=== PATIENT | male | born 1960 | race African-American/Black ===

== ENCOUNTER 2016-06-15 00:59 | Emergency (ER) | payer OTHER ==
[2015-12-12 20:30] VITALS: BP 166/84
[~2016-06-15 00:59] MED LIST: ASPI-482 PO; LOSA50TA6 PO; ONDA4TAB10 PO; PRED20TA PO
== END 2016-06-15 01:40 | disposition left against medical advice (07) ==
LOC: ER 00:59
DX: R10.9 Unspecified abdominal pain (principal); R11.2 Nausea with vomiting, unspecified; Z53.21 Procedure and treatment not carried out due to patient leaving prior to being seen by health care provider; Z88.8 Allergy status to other drugs, medicaments and biological substances; Z88.1 Allergy status to other antibiotic agents

== ENCOUNTER 2016-09-17 16:37 | Emergency (ER) | payer OTHER ==
[~2016-09-17] VITALS: Ht 175.3 cm; Wt 122.5 kg
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
[2016-09-17] MEDS ORDERED: IBUPROFEN 600 MG TABLET. PO ONE (17:15)
[2016-09-17 17:47] LABS: BASO # 0.1 x10^3/uL (0.0-0.2); BASO % 2 % (0-3); EOS % 1 % (0-3); HEMATOCRIT 37.1 % (39.0-53.0); HEMOGLOBIN 12.7 g/dL (13.0-17.5); LYMPH # 2.5 x10^3/uL (1.0-4.8); LYMPH % 26 % (24-48); MEAN CORPUSCULAR HEMOGLOBIN 30 pg (25-35); MEAN CORPUSCULAR HGB CONC 34 g/dL (31-37); MEAN CORPUSCULAR VOLUME 87 fL (79-100); MONO % 6 % (0-9); NEUT % 65 % (31-73); PLATELET COUNT 323 x10^3/uL (140-400); RED BLOOD COUNT 4.25 x10^6/uL (4.30-5.70); RED CELL DISTRIBUTION WIDTH 15.6 % (11.5-14.5); WHITE BLOOD COUNT 9.4 x10^3/uL (4.0-11.0)
[2016-09-17 17:57] LABS: CALCIUM 8.9 mg/dL (8.5-10.1); CREATININE 0.8 mg/dL (0.7-1.3); GFR 121.4; POTASSIUM 4.5 mmol/L (3.5-5.1)
[2016-09-17 18:03] LABS: ALBUMIN 3.4 g/dL (3.4-5.0); ALBUMIN/GLOBULIN RATIO 1.1 (1.0-1.7); TOTAL BILIRUBIN 0.4 mg/dL (0.2-1.0); TOTAL PROTEIN 6.5 g/dL (6.4-8.2)
[2016-09-17 18:24] VITALS: BP 155/87
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
[2016-09-17] MEDS ORDERED: OXYC-323 PO (18:55)
--- NOTE | 2016-09-18 06:40 | EKG ---
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
== END 2016-09-17 19:25 | disposition home or self-care (01) ==
LOC: ER 16:37
DX: G89.29 Other chronic pain (principal); M54.2 Cervicalgia; M54.16 Radiculopathy, lumbar region; E11.9 Type 2 diabetes mellitus without complications; E78.00 Pure hypercholesterolemia, unspecified; I10 Essential (primary) hypertension; Z90.81 Acquired absence of spleen; Z88.1 Allergy status to other antibiotic agents; Z88.8 Allergy status to other drugs, medicaments and biological substances; Z86.73 Personal history of transient ischemic attack (TIA), and cerebral infarction without residual deficits
CPT/HCPCS: 36415; 70450; 72125; 72131; 80053; 85027; 93005; 99285-25

== ENCOUNTER 2016-10-08 20:05 | Inpatient (IN) | payer OTHER ==
[~2016-10-08] VITALS: Ht 175.3 cm; Wt 122.7 kg
[~2016-10-08 20:05] MED LIST changes: +BUSP15TA PO; +OXYC-323 PO
[2016-10-08 20:47] LABS: BASO # 0.1 x10^3/uL (0.0-0.2); BASO % 1 % (0-3); EOS % 1 % (0-3); HEMATOCRIT 40.9 % (39.0-53.0); HEMOGLOBIN 13.4 g/dL (13.0-17.5); LYMPH # 2.4 x10^3/uL (1.0-4.8); LYMPH % 25 % (24-48); MEAN CORPUSCULAR HEMOGLOBIN 29 pg (25-35); MEAN CORPUSCULAR HGB CONC 33 g/dL (31-37); MEAN CORPUSCULAR VOLUME 90 fL (79-100); MONO % 6 % (0-9); NEUT % 66 % (31-73); PLATELET COUNT 379 x10^3/uL (140-400); RED BLOOD COUNT 4.56 x10^6/uL (4.30-5.70); RED CELL DISTRIBUTION WIDTH 15.4 % (11.5-14.5); WHITE BLOOD COUNT 9.5 x10^3/uL (4.0-11.0)
[2016-10-08 20:57] LABS: INR 1.1 (0.8-1.1); PROTHROMBIN TIME PATIENT 13.2 SEC (11.7-14.0)
[2016-10-08 21:00] LABS: CALCIUM 8.5 mg/dL (8.5-10.1); CREATININE 1.1 mg/dL (0.7-1.3); GFR 84.1; POTASSIUM 3.9 mmol/L (3.5-5.1)
[2016-10-08] MEDS ORDERED: MORPHINE SULFATE 10 MG/ML VIAL. IV ONE (21:00)
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
[2016-10-08 21:07] LABS: ALBUMIN 3.8 g/dL (3.4-5.0); MAGNESIUM 2.3 mg/dL (1.8-2.4); TOTAL BILIRUBIN 0.6 mg/dL (0.2-1.0); TOTAL PROTEIN 7.6 g/dL (6.4-8.2)
--- NOTE | 2016-10-08 21:13 | RAD ---
CT HEAD WO CONTRAST History: Altered gait, right leg pain for one week Comparison: September 17, 2016 Technique: Noncontrast [address] images were acquired from the skull base to the vertex. Exposure: One or more of the following individualized dose reduction techniques were utilized for this examination: 1. Automated exposure control 2. Adjustment of the mA and/or kV according to patient size 3. Use of iterative reconstruction technique. Findings: No acute extra-axial or parenchymal hemorrhage is identified. There is no significant intra-axial mass effect, midline shift, or extra-axial fluid collection. The patterson-white differentiation of the major vascular territories is preserved. The ventricles, sulci, and cisterns are within normal limits in size and configuration. Mastoid air cells are aerated. There is again 1.7 mm complex cyst or polyp of the left sphenoid sinus. No acute calvarial abnormality is identified. Impression: 1. No acute intracranial abnormality is identified. 2. There is again complex cyst or polyp of the left sphenoid sinus. Electronically signed by: Marvel Luque MD (10/08/2016 9:10 PM) [facility]
[2016-10-08 21:26] LABS: BILIRUBIN,URINE NEGATIVE (NEG); GLUCOSE,URINE NEGATIVE (NEG); NITRITE,URINE NEGATIVE (NEG); PH,URINE 5.5; PROTEIN,URINE NEGATIVE (NEG-TRACE)
[2016-10-08 21:33] LABS: BARBITURATES NEG (NEG); BENZODIAZEPINES NEG (NEG); CANNABINOIDS NEG (NEG); COCAINE NEG (NEG); METHADONE NEG (NEG); OPIATES NEG (NEG); PHENCYCLIDINE NEG (NEG)
[2016-10-08 21:36] LABS: BACTERIA,URINE MODERATE /HPF (0-FEW); SQUAMOUS EPITHELIAL CELL,UR FEW /LPF
[2016-10-08] MEDS ORDERED: ONDANSETRON PF 4 MG/2 ML VIAL. IV PRN (21:45)
[2016-10-08] MEDS ORDERED: fentaNYL PF VIAL 100 MCG/2 ML VIAL IV PRN (21:45)
[2016-10-08] MEDS ORDERED: ASPIRIN ENTERIC COATED 325 MG TABLET.DR. PO ONE (21:45)
[2016-10-08 22:55] VITALS: BP 119/78
[2016-10-09] MEDS ORDERED: TRIA1TAB3 PO (00:05)
[2016-10-09] MEDS ORDERED: LORA10TA3 PO (00:05)
[2016-10-09] MEDS ORDERED: AZEL137S3 NS (00:05)
[2016-10-09 03:15] VITALS: BP 152/84
[2016-10-09 05:06] LABS: BASO % 1 % (0-3); EOS % 2 % (0-3); HEMATOCRIT 37.2 % (39.0-53.0); HEMOGLOBIN 12.5 g/dL (13.0-17.5); LYMPH # 2.3 x10^3/uL (1.0-4.8); LYMPH % 28 % (24-48); MEAN CORPUSCULAR HEMOGLOBIN 30 pg (25-35); MEAN CORPUSCULAR HGB CONC 34 g/dL (31-37); MEAN CORPUSCULAR VOLUME 88 fL (79-100); MONO % 10 % (0-9); NEUT % 60 % (31-73); PLATELET COUNT 351 x10^3/uL (140-400); RED BLOOD COUNT 4.21 x10^6/uL (4.30-5.70); RED CELL DISTRIBUTION WIDTH 15.7 % (11.5-14.5); WHITE BLOOD COUNT 8.3 x10^3/uL (4.0-11.0)
--- NOTE | 2016-10-09 05:29 | ACF ---
Admission Forms Criteria NEUROLOGY GRG Clinical Indications for Admission to Inpatient Care (Place ' X' for any and all applicable criteria): Hospital admission is needed for appropriate care of the patient because of 1 or more of the following: [ ]I. Encephalitis [ ]II. Severe [employer] infections indicated by 1 or more of the following(1)(2)(3) : [ ]a) Intracranial abscess [ ]b) Spinal abscess or myelitis [ ]c) Tuberculous or other nonbacterial, nonviral STE[employer]ENDANT infection(8) [ ]III. Vasculitis and 1 or more of the following(14)(15): []a) Altered mental status that is severe or persistent or other acute neurologic change []b) Psychosis []c) Seizure [ ]IV. Status epilepticus or repetitive seizures not controlled with emergent treatment [A] (7)(8) [ ]V. Altered mental status that is severe or persistent [ ]. Transient alteration in consciousness with high-risk etiology; examples include (12)(13): [ ]a) Cardiovascular source [ ]b) Cataplexy [ ]VII. Cerebral aneurysm requiring ANY ONE of the following(14): [ ]a) IV antihypertensives or vasoactive agents [ ]b) Sedation and analgesia for suspected leak [ ]c) Need for external ventricular drainage and cerebral perfusion pressure monitoring [ ]d) Emergent evaluation to determine need for surgical clipping or endovascular coiling by interventional radiology. If surgery is required ( Also use Craniotomy, Supratentorial, for Surgery of Bleeding Intracranial Aneurysm (for bleeding aneurysm) or Craniotomy, Supratentorial (for nonbleeding aneurysm) as appropriate. [X]VIII. New-onset severe neurologic symptom requiring inpatient care indicated by ANY ONE of the following: [ ]a) Aphasia(15) [ ]b) Weakness (grade 3 or less) [ ]c) Paralysis (eg, hemiplegia) [ ]d) Spasticity(16) [ ]e) Dystonia [ ]e) Ataxia(17) [ ]f) Amnesia(18) [ ]g) Involuntary movements(19) [ ]h) Vertigo [ ] Visual loss [X]i) Other severe neurologic finding (eg, papilledema, mass effect on imaging, myoclonus not treatable at alternative level of care (eg, observation care) [ ]IX. Guillain-[place] syndrome(20) [ ]X. Myasthenia gravis crisis or inpatient monitoring need as indicated by 1 or more of the following(21): [ ]a) Intensive treatment (eg, course of plasmapheresis) with inadequate outpatient situation to monitor patients status [ ]b) Inadequate airway protection [ ]c) Respiratory insufficiency requiring intubation or inpatient. monitoring [ ]d) Progressive dysphagia with failure to thrive [ ]XI. Multiple sclerosis or other acute demyelinating disease requiring inpatient care as indicated by 1 or more of the following (22)(23): [ ]a) Acute severe deterioration requiring inpatient treatment (eg, IV steroids, plasmapheresis, close observation) [ ]b) Acute complication requiring inpatient care (eg, sepsis, severe decubitus, aspiration) [ ]XII.Parkinson disease requiring inpatient care (Also use Optimal Recovery Care Criteria or General Recovery Criteria as appropriate) indicated by 1 or more of the following(25): [ ]a) Infection (eg, aspiration pneumonia) not treatable at alternative level of care [ ]b Dehydration that is severe or persistent [ ]c) Life-threatening agitation or psychotic behavior not treatable on emergency, observation care, or alternative level (eg, residential) basis [ ]d) Severe medication withdrawal effects (eg, freezing, neuroleptic malignant syndrome) not responsive to emergency and observation care treatment ( as appropriate) [ ]e) Other severe manifestation not treatable at alternative level of care [ ]XII. Amyotrophic lateral sclerosis with inpatient care needs as indicated by ANY ONE of the following(26): [ ]a) Acute complications (eg, aspiration pneumonia, sepsis ) requiring inpatient care ( see other optimal Recovery Guideline as appropriate) [ ]b) Dehydration that is severe persistent AND artificial support desired [ ]c) Inadequate airway protection AND artificial support desired [ ]d) Severe ventilatory insufficiency AND artificial support desired [ ]XIII. Myasthenia gravis crisis or inpatient monitoring need as indicated by 1 or more of the following(21): [] a) Inadequate airway protection []b) Respiratory insufficiency requiring intubation or inpatient monitoring []c) Progressive dysphagia with failure to thrive []d) Intensive treatment (e.g., course of plasmapheresis) with inadequate outpatient situation to monitor patients status [ ]XIV. Multiple sclerosis or other acute demyelinating disease requiring inpatient care indicated by 1 or more of the following[C](36)(43)(44)(45)(46): []a) Acute severe deterioration requiring inpatient treatment (eg, IV steroids, plasmapheresis, close observation) []b) Acute complication requiring inpatient care (eg, sepsis, severe decubitus, aspiration) [ ]XV. Intracranial hypertension (e.g., pseudotumor cerebri) requiring inpatient care (e.g., acute visual loss, inadequate oral intake) (47)(48)(49) [ ]XVI. Parkinson disease requiring inpatient care (Also use Optimal Recovery Care Criteria or General Recovery Criteria as appropriate) indicated by 1 or more of the following(25): [] a) Infection (e.g., aspiration pneumonia) not treatable at alternative level of care []b) Volume depletion not responsive to emergency and observation care treatment (as appropriate) []c) Life-threatening agitation or psychotic behavior not treatable on emergency, observation care, or alternative level (e.g., residential) basis []d) Severe medication withdrawal effects (e.g., freezing, neuroleptic malignant syndrome) not responsive to emergency and observation care treatment (as appropriate) []e) Other severe manifestation not treatable at alternative level of care [ ]XVII. Amyotrophic lateral sclerosis with inpatient care needs as indicated by1 or more of the following(42): []a) Acute complications (eg, aspiration pneumonia, sepsis) requiring inpatient care (see other Optimal Recovery Guideline or General Recovery Guideline as appropriate) []b) Dehydration that is severe or persistent AND artificial support desired []c) Inadequate airway protection AND artificial support desired []d) Severe ventilatory insufficiency AND artificial support desired [ ]XVIII. Severe myopathy, neuropathy, or other neuromuscular disease indicated by 1 or more of the following(42)(52)(53)(54): []a ) New-onset severe diffuse weakness (eg, strength 3/5 or less) []b) Severe dysphagia []c) Dyspnea at rest or with minimal exertion (new) []d) Inadequate airway protection []e) Inadequate ventilation indicated by 1 or more of the following : i) Partial pressure of carbon dioxide greater than 44 mm Hg ( 5.9 kPa) (new) ii) Reduced peak expiratory flow rate (new) iii) Vital capacity less than 50% of predicted (less than 15 mL/kg) iv) Peak inspiratory force less negative than -30 cm H2O (- 2942 Pa) [ ]XVII.Complications of congenital or degenerative disease (eg, infection, seizures, dehydration, injury) not responsive to emergency and observation care treatment (as appropriate ) [C](16)(29)(30) [ ]XVIII.Suspected or confirmed nerve or muscle toxic injury, including ANY ONE of the following: [ ]a) Rhabdomyolysis(31) i) Acute renal failure ii) Dehydration that is severe or persistent iii) Altered mental status that is severe or persistent iv) Electrolyte abnormality that remains after emergency or observation level care ( as appropriate) [ ]b) Botulism(32) [ ]c) Other severe toxin-induced sign or symptom [ ]XIX. Neurologic trauma requiring inpatient treatment (medical) indicated by ANY ONE of the following(33)(34): [ ]a) Vital signs or neurologic signs more frequently than every 4 hours [ ]b) Hyperosmolar therapy [ ]c) Respiratory monitoring [ ]d) Intracranial pressure monitoring and treatment [ ]e) Stabilization and immobilization device placement (eg, braces, body jacket) [ ]f) Intubation & mechanical ventilation for airway protection or therapeutic hyperventilation [ ]g) Other treatment or monitoring needed that requires inpatient level of care [ ]XX.Complications of neurologic devices (eg, ventricular shunt, neurostimulator) requiring 1 or more of the following(35)(36): [ ]a) IV antibiotics with monitoring while awaiting culture results [ ]b) Monitoring for hydrocephalus [ ]XXI. Neurology condition symptom, or finding for which emergency and observation care have failed or are not considered appropriate. See General Criteria: Observation Care ISC, General Admission Criteria GRG, or Pediatric General Admission Criteria GRG guideline as appropriate. The original [facility] [employer] content created by [facility] has been revised. The portions of the content which have been revised are identified through the use of italic text or in bold, and [facility] has neither reviewed nor approved the modified material. All other unmodified content is copyright [facility] Please see references footnoted in the original [facility] Admission Criteria Met?: Yes DEONDRE ALVES Oct 09, 2016 05:29
[2016-10-09 05:33] LABS: CALCIUM 8.2 mg/dL (8.5-10.1); CREATININE 0.8 mg/dL (0.7-1.3); GFR 121.4; POTASSIUM 3.6 mmol/L (3.5-5.1)
[2016-10-09 07:00] VITALS: BP 123/66
[2016-10-09 11:00] VITALS: BP 154/80
[2016-10-09] MEDS ORDERED: traMADol 50 MG TABLET PO PRN (11:15)
[2016-10-09] MEDS ORDERED: hydrALAZINE 20 MG/ML VIAL. IVP PRN (11:15)
[2016-10-09] MEDS ORDERED: ONDANSETRON PF 4 MG/2 ML VIAL. IV PRN (11:15)
[2016-10-09] MEDS ORDERED: MORPHINE SULFATE 2 MG/ML DISP.SYRIN. IV PRN (11:15)
[2016-10-09] MEDS ORDERED: DOCUSATE SODIUM 100 MG CAPSULE. PO PRN (11:15)
[2016-10-09] MEDS ORDERED: oxyCODONE/APAP 5/325 1 TAB TABLET PO PRN (11:15)
[2016-10-09] MEDS ORDERED: ACETAMINOPHEN 325 MG TABLET. PO PRN (11:15)
[2016-10-09 11:44] LABS: FOLATE 18.81 ng/ml (3.2-20.0)
[2016-10-09] MEDS: ENOXAPARIN 40 MG/0.4 ML SYRINGE. SQ SCH (12:00)
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
--- NOTE | 2016-10-09 13:26 | RAD ---
Indication: Right arm and leg pain and weakness. Technique: Study is dated October 09, 2016. MRI evaluation of the brain was performed using sagittal T1, axial FLAIR, axial T2, axial T1, axial gradient echo, coronal T2, and axial diffusion with ADC mapping sequences. Comparison is a CT from one day earlier. Findings: The ventricles and sulci are within normal limits for age. FLAIR hyperintensities in the supratentorial white matter are not specific but most suggestive of mild small vessel ischemic disease. There is no acute intracranial hemorrhage or extra-axial fluid collection. There is no mass effect or midline shift. There is no restricted diffusion to suggest an acute infarct. Sagittal midline structures are unremarkable. Pituitary and suprasellar region are unremarkable. Intracranial flow voids are preserved. There is a left sphenoid retention cyst. IMPRESSION: 1. Brain parenchymal volume loss and mild probable small vessel ischemic disease. No acute intracranial findings. Electronically signed by: Nader Locke MD (10/09/2016 1:23 PM) [id number]
[2016-10-09] MEDS: CETIRIZINE HCL 10 MG TABLET. PO SCH (13:45)
[2016-10-09] MEDS: ASPIRIN ENTERIC COATED 81 MG TABLET.DR. PO SCH (13:46)
[2016-10-09] MEDS: GABAPENTIN 300 MG CAPSULE. PO SCH ×2 (13:46→20:30)
[2016-10-09] MEDS: amLODIPine BESYLATE 5 MG TABLET PO SCH (13:46)
[2016-10-09] MEDS: TRIAMTERENE/HCTZ 37.5/25MG TABLET. PO SCH (13:46)
[2016-10-09] MEDS: AZELASTINE NASAL SPRAY 30ML BOTTLE. NS SCH (13:46)
[2016-10-09 15:00] VITALS: BP 148/80
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
[2016-10-09 19:45] VITALS: BP 158/93
[2016-10-09 23:00] VITALS: BP 133/69
[2016-10-09] MEDS: busPIRone 5 MG TABLET. PO PRN (23:40)
[2016-10-10 03:03] VITALS: BP 136/68
[2016-10-10 04:35] LABS: BASO # 0.1 x10^3/uL (0.0-0.2); BASO % 1 % (0-3); EOS % 2 % (0-3); HEMATOCRIT 39.8 % (39.0-53.0); HEMOGLOBIN 13.2 g/dL (13.0-17.5); LYMPH # 2.4 x10^3/uL (1.0-4.8); LYMPH % 31 % (24-48); MEAN CORPUSCULAR HEMOGLOBIN 30 pg (25-35); MEAN CORPUSCULAR HGB CONC 33 g/dL (31-37); MEAN CORPUSCULAR VOLUME 90 fL (79-100); MONO % 8 % (0-9); NEUT % 58 % (31-73); PLATELET COUNT 326 x10^3/uL (140-400); RED CELL DISTRIBUTION WIDTH 15.6 % (11.5-14.5); WHITE BLOOD COUNT 7.9 x10^3/uL (4.0-11.0)
[2016-10-10 04:58] LABS: CALCIUM 8.6 mg/dL (8.5-10.1); CREATININE 0.9 mg/dL (0.7-1.3); POTASSIUM 3.9 mmol/L (3.5-5.1)
[2016-10-10 07:50] VITALS: BP 114/69
[2016-10-10] MEDS: TRIAMTERENE/HCTZ 37.5/25MG TABLET. PO SCH (07:52)
[2016-10-10] MEDS: CETIRIZINE HCL 10 MG TABLET. PO SCH (07:53)
[2016-10-10] MEDS: GABAPENTIN 300 MG CAPSULE. PO SCH ×2 (07:54→13:57)
[2016-10-10] MEDS: ASPIRIN ENTERIC COATED 81 MG TABLET.DR. PO SCH (07:54)
[2016-10-10] MEDS: amLODIPine BESYLATE 5 MG TABLET PO SCH (07:55)
[2016-10-10] MEDS: AZELASTINE NASAL SPRAY 30ML BOTTLE. NS SCH (09:37)
[2016-10-10] MEDS ORDERED: BUSP15TA PO (10:58)
[2016-10-10] MEDS ORDERED: TRAM50TA PO (10:58)
[2016-10-10] MEDS ORDERED: GABA300C8 PO (10:58)
[2016-10-10] MEDS ORDERED: ASPI-482 PO (10:58)
[2016-10-10] MEDS ORDERED: TRIA1TAB3 PO (10:58)
[2016-10-10 11:15] VITALS: BP 149/84
[2016-10-10] MEDS: busPIRone 5 MG TABLET. PO PRN (12:34)
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
[2016-10-10] MEDS ORDERED: GADOBUTROL 7.5 MMOL/7.5 ML VIAL IV ONE (13:15)
[2016-10-10] MEDS: ENOXAPARIN 40 MG/0.4 ML SYRINGE. SQ SCH (13:58)
--- NOTE | 2016-10-10 14:02 | RAD ---
INDICATION: Left leg pain and numbness. Weakness. TECHNIQUE: Sagittal T1, sagittal T2, sagittal STIR, sagittal postcontrast, axial T1, axial T2, and axial postcontrast sequences are provided. 12 mL of intravenous Gadavist was administered without complication. Comparison is a CT from September 17, 2016. FINDINGS: There is no malalignment. There is fatty replacement of the corners of several vertebral bodies which is probably degenerative. There is no marrow edema. There is no worrisome marrow lesion. There is diffuse disc desiccation. There is no pathologic enhancement. The conus medullaris is normal in signal intensity and in position. It terminates at L1-L2. Subcutaneous edema is noted. The numbering system assumes 5 lumbar type vertebral bodies. Findings by individual level are as follows: L1-L2: There is no canal or foraminal compromise. L2-L3: Minimal disc bulge and mild facet hypertrophy are noted without canal or foraminal compromise. L3-L4: Mild disc bulge and facet hypertrophy are noted with mild foraminal narrowing. L4-L5: Diffuse disc bulge and moderate facet and ligamentum flavum hypertrophy are noted. There is mild to moderate canal stenosis. There is lateral recess narrowing bilaterally, could explain an L5 radiculopathy, especially on the right. There is mild foraminal narrowing. L5-S1: Disc bulge and facet hypertrophy are noted. There is edema about the facets which is probably reactive. There is minimal canal stenosis. There is mild lateral recess narrowing bilaterally. There is minimal left and [id number] right foraminal narrowing. IMPRESSION: Degenerative disc disease and facet hypertrophy in the lumbar spine, findings most notable at L4-L5 and L5-S1. Electronically signed by: Nader Locke MD (10/10/2016 1:59 PM) [id number]
[2016-10-10 15:20] VITALS: BP 142/83
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
[2016-10-10] MEDS ORDERED: SIMVASTATIN 20 MG TABLET PO SCH (21:00)
== END 2016-10-10 10:53 | disposition home or self-care (01) | DRG 74 ==
LOC: ER 20:05 → 6 SOUTH 21:35
PROVIDERS: ADMIT Internal Medicine; ATTEND Internal Medicine
DX: E11.42 Type 2 diabetes mellitus with diabetic polyneuropathy (principal); Z68.41 Body mass index [BMI] 40.0-44.9, adult; N39.0 Urinary tract infection, site not specified; E66.01 Morbid (severe) obesity due to excess calories; I10 Essential (primary) hypertension; G89.29 Other chronic pain; F41.9 Anxiety disorder, unspecified; E78.5 Hyperlipidemia, unspecified; R27.0 Ataxia, unspecified; F17.210 Nicotine dependence, cigarettes, uncomplicated; M54.2 Cervicalgia; M54.9 Dorsalgia, unspecified; Z88.1 Allergy status to other antibiotic agents; Z79.899 Other long term (current) drug therapy; Z82.49 Family history of ischemic heart disease and other diseases of the circulatory system; Z86.73 Personal history of transient ischemic attack (TIA), and cerebral infarction without residual deficits; Z90.81 Acquired absence of spleen; Z88.8 Allergy status to other drugs, medicaments and biological substances
CPT/HCPCS: 36415; 70450; 70551; 72158; 80048; 80053; 80061; 80307; 81001; 82607; 82746; 82962; 83036; 83735; 83880; 84443; 84484; 85027; 85610; 85730; 87086; 96374; A9585; G0480; J1650; J2270; 97535; 99285-25; G0479

== ENCOUNTER 2016-10-10 23:29 | Emergency (ER) | payer OTHER ==
[~2016-10-10] VITALS: Ht 175.3 cm; Wt 122.5 kg
[~2016-10-10 23:29] MED LIST changes: +AZEL137S3 NS; +GABA300C8 PO; +LORA10TA3 PO; +TRAM50TA PO; +TRIA1TAB3 PO
[2016-10-10 23:51] VITALS: BP 177/80
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
== END 2016-10-11 00:16 | disposition home or self-care (01) ==
LOC: ER 23:29
DX: M79.604 Pain in right leg (principal); F41.9 Anxiety disorder, unspecified; E11.9 Type 2 diabetes mellitus without complications; E78.00 Pure hypercholesterolemia, unspecified; I10 Essential (primary) hypertension; G89.29 Other chronic pain; Z86.73 Personal history of transient ischemic attack (TIA), and cerebral infarction without residual deficits; Z90.81 Acquired absence of spleen; Z88.1 Allergy status to other antibiotic agents; Z88.8 Allergy status to other drugs, medicaments and biological substances
CPT/HCPCS: 99281

== ENCOUNTER 2016-10-30 02:46 | Emergency (ER) | payer OTHER ==
[~2016-10-30] VITALS: Ht 175.3 cm; Wt 122.5 kg
[2016-10-30 03:57] LABS: BASO # 0.1 x10^3/uL (0.0-0.2); BASO % 1 % (0-3); EOS % 1 % (0-3); HEMATOCRIT 39.2 % (39.0-53.0); HEMOGLOBIN 12.9 g/dL (13.0-17.5); LYMPH # 2.8 x10^3/uL (1.0-4.8); LYMPH % 23 % (24-48); MEAN CORPUSCULAR HEMOGLOBIN 29 pg (25-35); MEAN CORPUSCULAR HGB CONC 33 g/dL (31-37); MEAN CORPUSCULAR VOLUME 90 fL (79-100); MONO % 6 % (0-9); NEUT % 69 % (31-73); PLATELET COUNT 415 x10^3/uL (140-400); RED BLOOD COUNT 4.39 x10^6/uL (4.30-5.70); RED CELL DISTRIBUTION WIDTH 15.4 % (11.5-14.5)
[2016-10-30 04:16] LABS: CALCIUM 9.1 mg/dL (8.5-10.1); CREATININE 0.9 mg/dL (0.7-1.3); GFR 105.6; POTASSIUM 3.7 mmol/L (3.5-5.1)
--- NOTE | 2016-10-30 04:20 | RAD ---
EXAM: CT head without contrast HISTORY: dizzy COMPARISON: October 08, 2016 TECHNIQUE: Computed tomographic images of the head were obtained without contrast. RS compliance statement: One or more of the following individualized dose reduction techniques were utilized for this examination: 1. Automated exposure control 2. Adjustment of the mA and/or kV according to patient size 3. Use of iterative reconstruction technique FINDINGS: There is no acute intracranial process identified. Specifically, there are no intracranial blood products, extra-axial fluid collections, mass effect or midline shift. Ventricles and sulci appear age-appropriate. A mucous retention cyst versus polyp is present in the left sphenoid sinus. Remaining visualized paranasal sinuses are clear. The visualized portions of the orbits and mastoid air cells are unremarkable. No suspicious calvarial lesion is seen. IMPRESSION: No acute intracranial findings. Electronically signed by: Donna Grayson MD (10/30/2016 4:17 AM) [facility]
[2016-10-30 04:23] LABS: ALBUMIN 3.5 g/dL (3.4-5.0); ALBUMIN/GLOBULIN RATIO 0.9 (1.0-1.7); TOTAL BILIRUBIN 0.6 mg/dL (0.2-1.0); TOTAL PROTEIN 7.3 g/dL (6.4-8.2)
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
[2016-10-30 05:41] LABS: BARBITURATES NEG (NEG); BENZODIAZEPINES NEG (NEG); CANNABINOIDS NEG (NEG); COCAINE NEG (NEG); METHADONE NEG (NEG); OPIATES NEG (NEG); PHENCYCLIDINE NEG (NEG)
[2016-10-30 06:20] VITALS: BP 148/72
--- NOTE | 2016-10-30 07:15 | RAD ---
Portable chest, 10/30/2016: History: Dizziness Comparison is made to a study from 09/27/2016. The heart is at the upper limits of normal in size. The pulmonary vascularity is normal. No pulmonary infiltrates are seen. There is no evidence of pleural fluid. IMPRESSION: No acute cardiopulmonary abnormality is detected.
--- NOTE | 2016-10-30 10:16 | EKG ---
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
== END 2016-10-30 06:20 | disposition home or self-care (01) ==
LOC: ER 02:46
DX: G47.10 Hypersomnia, unspecified (principal); R42 Dizziness and giddiness; I10 Essential (primary) hypertension; E11.9 Type 2 diabetes mellitus without complications; F41.9 Anxiety disorder, unspecified; E78.00 Pure hypercholesterolemia, unspecified; Z86.73 Personal history of transient ischemic attack (TIA), and cerebral infarction without residual deficits; Z88.1 Allergy status to other antibiotic agents; Z88.8 Allergy status to other drugs, medicaments and biological substances
CPT/HCPCS: 36415; 70450; 71010; 80053; 80307; 82962; 84443; 84484; 85025; 93005; 99285; G0480; G0479

== ENCOUNTER 2016-11-16 18:59 | Emergency (ER) | payer OTHER ==
[~2016-11-16] VITALS: Ht 175.3 cm; Wt 122.5 kg
[2016-11-16 19:20] VITALS: BP 151/76
[2016-11-16] MEDS ORDERED: CEPH-264 PO (19:36)
[2016-11-16] MEDS ORDERED: DIPH25CA58 PO (19:36)
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
== END 2016-11-16 19:45 | disposition home or self-care (01) ==
LOC: ER 18:59
DX: S80.862A Insect bite (nonvenomous), left lower leg, initial encounter (principal); S80.861A Insect bite (nonvenomous), right lower leg, initial encounter; J02.9 Acute pharyngitis, unspecified; F41.9 Anxiety disorder, unspecified; E11.9 Type 2 diabetes mellitus without complications; I10 Essential (primary) hypertension; E78.00 Pure hypercholesterolemia, unspecified; G89.29 Other chronic pain; Z86.73 Personal history of transient ischemic attack (TIA), and cerebral infarction without residual deficits; Z90.81 Acquired absence of spleen; Z88.1 Allergy status to other antibiotic agents; Z88.8 Allergy status to other drugs, medicaments and biological substances; W57.XXXA Bitten or stung by nonvenomous insect and other nonvenomous arthropods, initial encounter; Y93.89 Activity, other specified; Y92.89 Other specified places as the place of occurrence of the external cause; Y99.8 Other external cause status
CPT/HCPCS: 99283

== ENCOUNTER 2016-11-25 11:50 | Emergency (ER) | payer OTHER ==
[~2016-11-25] VITALS: Ht 175.3 cm; Wt 124.7 kg
[~2016-11-25 11:50] MED LIST changes: +CEPH-264 PO; +DIPH25CA58 PO
--- NOTE | 2016-11-25 13:48 | RAD ---
Chest, 2 views, 11/25/2016: History: Cough, shortness of breath Comparison is made to a study from 10/30/2016. The heart size and pulmonary vascularity are normal. There is unchanged widening of the superior mediastinum. This has been present on multiple old exams. No pulmonary infiltrates are seen. There is no evidence of pleural fluid. Mild spurring is present in the spine. IMPRESSION: 1. Stable superior mediastinal widening. 2. No acute cardiopulmonary abnormality is detected.
--- NOTE | 2016-11-25 13:51 | EKG ---
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
[2016-11-25 14:10] LABS: BASO # 0.1 x10^3/uL (0.0-0.2); BASO % 1 % (0-3); EOS % 2 % (0-3); HEMATOCRIT 38.5 % (39.0-53.0); HEMOGLOBIN 12.7 g/dL (13.0-17.5); LYMPH # 2.5 x10^3/uL (1.0-4.8); LYMPH % 26 % (24-48); MEAN CORPUSCULAR HEMOGLOBIN 29 pg (25-35); MEAN CORPUSCULAR HGB CONC 33 g/dL (31-37); MEAN CORPUSCULAR VOLUME 89 fL (79-100); MONO % 7 % (0-9); NEUT % 64 % (31-73); PLATELET COUNT 337 x10^3/uL (140-400); RED BLOOD COUNT 4.32 x10^6/uL (4.30-5.70); WHITE BLOOD COUNT 9.6 x10^3/uL (4.0-11.0)
[2016-11-25 14:22] LABS: PROTHROMBIN TIME PATIENT 12.8 SEC (11.7-14.0)
--- NOTE | 2016-11-25 14:24 | RAD ---
Indication pain and swelling. Grayscale color Doppler and spectral imaging was performed. Examination was targeted to the veins of the right lower extremity. The common femoral, femoral and popliteal vessels demonstrate normal flow compressibility and augmentation. No thrombus is seen. The visualized calf veins appeared normal. An enlarged lymph node was noted in the right groin, during the exam, approaching 4 cm. IMPRESSION: Negative study for DVT in the right lower extremity. Enlarged lymph node right groin
[2016-11-25 14:34] LABS: CALCIUM 8.9 mg/dL (8.5-10.1); CREATININE 0.8 mg/dL (0.7-1.3); POTASSIUM 3.8 mmol/L (3.5-5.1)
[2016-11-25 14:40] LABS: ALBUMIN 3.2 g/dL (3.4-5.0); ALBUMIN/GLOBULIN RATIO 0.8 (1.0-1.7); TOTAL BILIRUBIN 0.5 mg/dL (0.2-1.0)
[2016-11-25] MEDS ORDERED: FUROSEMIDE 40 MG/4 ML VIAL. IVP ONE (15:00)
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
[2016-11-25 15:34] VITALS: BP 172/88
[2016-11-26 06:54] LABS: NEGATIVE OBC STREP NEG; POSITIVE OBC STREP POS
== END 2016-11-25 16:00 | disposition home or self-care (01) ==
LOC: ER 11:50
DX: R60.0 Localized edema (principal); J02.9 Acute pharyngitis, unspecified; E11.9 Type 2 diabetes mellitus without complications; E78.00 Pure hypercholesterolemia, unspecified; I10 Essential (primary) hypertension; F17.200 Nicotine dependence, unspecified, uncomplicated; Z86.73 Personal history of transient ischemic attack (TIA), and cerebral infarction without residual deficits; Z59.0 Homelessness; Z88.1 Allergy status to other antibiotic agents; Z88.8 Allergy status to other drugs, medicaments and biological substances
CPT/HCPCS: 36415; 71020; 80053; 83880; 84484; 85025; 85610; 85730; 87070; 87880; 93005; 93971; 96374; 99285; J1940

== ENCOUNTER 2016-12-01 06:33 | Emergency (ER) | payer OTHER ==
[~2016-12-01] VITALS: Ht 175.3 cm; Wt 113.4 kg
[2016-12-01 07:13] LABS: BASO # 0.1 x10^3/uL (0.0-0.2); BASO % 1 % (0-3); EOS % 2 % (0-3); HEMOGLOBIN 13.5 g/dL (13.0-17.5); LYMPH # 2.8 x10^3/uL (1.0-4.8); LYMPH % 29 % (24-48); MEAN CORPUSCULAR HEMOGLOBIN 30 pg (25-35); MEAN CORPUSCULAR HGB CONC 33 g/dL (31-37); MEAN CORPUSCULAR VOLUME 90 fL (79-100); MONO % 8 % (0-9); NEUT % 60 % (31-73); PLATELET COUNT 359 x10^3/uL (140-400); RED BLOOD COUNT 4.56 x10^6/uL (4.30-5.70); RED CELL DISTRIBUTION WIDTH 15.7 % (11.5-14.5); WHITE BLOOD COUNT 9.8 x10^3/uL (4.0-11.0)
[2016-12-01 07:15] VITALS: BP 160/93
[2016-12-01] MEDS ORDERED: FUROSEMIDE 40 MG TABLET. PO ONE (07:15)
[2016-12-01 07:24] LABS: CALCIUM 9.3 mg/dL (8.5-10.1); CREATININE 0.9 mg/dL (0.7-1.3); GFR 105.6; POTASSIUM 4.3 mmol/L (3.5-5.1)
[2016-12-01 07:30] LABS: ALBUMIN 3.6 g/dL (3.4-5.0); TOTAL BILIRUBIN 0.4 mg/dL (0.2-1.0); TOTAL PROTEIN 7.2 g/dL (6.4-8.2)
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
[2016-12-01 07:38] LABS: CKMB MASS 3.1 ng/mL (0.0-3.6)
[2016-12-01] MEDS ORDERED: FURO-68 PO (08:10)
--- NOTE | 2016-12-01 08:13 | RAD ---
AP portable chest radiograph 12/01/2016 Clinical History: Shortness of breath. An AP portable erect digital radiograph of the chest was obtained. Comparison study is dated 11/25/2016. The cardiac silhouette is borderline enlarged. The thoracic aorta is mildly tortuous. No acute pulmonary infiltrate is seen. No pleural effusion or pneumothorax is noted. The osseous structures are unchanged. Impression: No acute pulmonary infiltrate is seen.
--- NOTE | 2016-12-01 12:52 | EKG ---
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
== END 2016-12-01 08:53 | disposition home or self-care (01) ==
LOC: ER 06:33
DX: R60.0 Localized edema (principal); R06.02 Shortness of breath; F41.9 Anxiety disorder, unspecified; E11.9 Type 2 diabetes mellitus without complications; E78.00 Pure hypercholesterolemia, unspecified; I10 Essential (primary) hypertension; G89.29 Other chronic pain; E66.9 Obesity, unspecified; Z87.891 Personal history of nicotine dependence; Z90.81 Acquired absence of spleen; Z88.1 Allergy status to other antibiotic agents; Z86.73 Personal history of transient ischemic attack (TIA), and cerebral infarction without residual deficits; Z79.84 Long term (current) use of oral hypoglycemic drugs; Z88.8 Allergy status to other drugs, medicaments and biological substances; Z68.36 Body mass index [BMI] 36.0-36.9, adult
CPT/HCPCS: 36415; 71010; 80053; 82553; 83880; 84484; 85025; 93005; 99285-25

== ENCOUNTER 2016-12-03 01:29 | Emergency (ER) | payer OTHER ==
[~2016-12-03] VITALS: Ht 175.3 cm; Wt 113.4 kg
[~2016-12-03 01:29] MED LIST changes: +FURO-68 PO
[2016-12-03 02:58] VITALS: BP 141/84
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
[2016-12-03] MEDS ORDERED: FAMOTIDINE 20 MG TABLET. PO ONE (03:45)
[2016-12-03] MEDS ORDERED: predniSONE 20 MG TABLET PO ONE (03:45)
[2016-12-03] MEDS ORDERED: METH4TAB2 PO (04:15)
[2016-12-03] MEDS ORDERED: FAMO-63 PO (04:15)
== END 2016-12-03 04:33 | disposition home or self-care (01) ==
LOC: ER 01:29
DX: T78.3XXA Angioneurotic edema, initial encounter (principal); E11.9 Type 2 diabetes mellitus without complications; E78.00 Pure hypercholesterolemia, unspecified; I10 Essential (primary) hypertension; Z86.73 Personal history of transient ischemic attack (TIA), and cerebral infarction without residual deficits; G89.29 Other chronic pain; Z90.81 Acquired absence of spleen; Z88.1 Allergy status to other antibiotic agents; Z88.8 Allergy status to other drugs, medicaments and biological substances
CPT/HCPCS: 99283; J7512

== ENCOUNTER 2016-12-12 02:03 | Emergency (ER) | payer OTHER ==
[~2016-12-12] VITALS: Ht 175.3 cm; Wt 113.4 kg
[~2016-12-12 02:03] MED LIST changes: +FAMO-63 PO; +METH4TAB2 PO
[2016-12-12 02:12] VITALS: BP 171/81
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
[2016-12-12] MEDS ORDERED: BENZ100C PO (02:38)
[2016-12-12 02:39] LABS: POTASSIUM ISTAT 3.8 mmol/L (3.5-5.0)
== END 2016-12-12 02:45 | disposition home or self-care (01) ==
LOC: ER 02:03
DX: J02.9 Acute pharyngitis, unspecified (principal); F17.200 Nicotine dependence, unspecified, uncomplicated; E78.00 Pure hypercholesterolemia, unspecified; I10 Essential (primary) hypertension; E11.9 Type 2 diabetes mellitus without complications; G89.29 Other chronic pain; Z88.1 Allergy status to other antibiotic agents; Z86.73 Personal history of transient ischemic attack (TIA), and cerebral infarction without residual deficits; Z88.8 Allergy status to other drugs, medicaments and biological substances
CPT/HCPCS: 80047; 99283

== ENCOUNTER 2016-12-24 04:10 | Inpatient (IN) | payer OTHER ==
[~2016-12-24] VITALS: Ht 175.3 cm; Wt 113.4 kg
[~2016-12-24 04:10] MED LIST changes: +BENZ100C PO
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
[2016-12-24 04:46] LABS: BASO # 0.1 x10^3/uL (0.0-0.2); BASO % 1 % (0-3); EOS % 2 % (0-3); HEMATOCRIT 39.4 % (39.0-53.0); LYMPH # 2.5 x10^3/uL (1.0-4.8); LYMPH % 25 % (24-48); MEAN CORPUSCULAR HEMOGLOBIN 29 pg (25-35); MEAN CORPUSCULAR HGB CONC 33 g/dL (31-37); MEAN CORPUSCULAR VOLUME 89 fL (79-100); MONO % 7 % (0-9); NEUT % 66 % (31-73); PLATELET COUNT 304 x10^3/uL (140-400); RED BLOOD COUNT 4.45 x10^6/uL (4.30-5.70); RED CELL DISTRIBUTION WIDTH 15.4 % (11.5-14.5)
[2016-12-24 04:56] LABS: INR 1.1 (0.8-1.1); PROTHROMBIN TIME PATIENT 13.3 SEC (11.7-14.0)
[2016-12-24] MEDS ORDERED: IPRATRPIUM/ALBUTEROL 0.5/2.5MG 3 ML NEBU. NEB ONE (05:00)
[2016-12-24 05:07] LABS: ALBUMIN 3.1 g/dL (3.4-5.0); ALBUMIN/GLOBULIN RATIO 0.8 (1.0-1.7); CALCIUM 8.7 mg/dL (8.5-10.1); CREATININE 0.8 mg/dL (0.7-1.3); POTASSIUM 3.7 mmol/L (3.5-5.1); TOTAL BILIRUBIN 0.4 mg/dL (0.2-1.0); TOTAL PROTEIN 6.8 g/dL (6.4-8.2)
[2016-12-24 05:13] LABS: CKMB MASS 3.1 ng/mL (0.0-3.6)
[2016-12-24] MEDS ORDERED: ONDANSETRON PF 4 MG/2 ML VIAL. IV PRN (05:15)
[2016-12-24] MEDS ORDERED: methylPREDNISolone SOD SUCC PF 125 MG/2 ML VIAL. IV ONE (05:30)
[2016-12-24] MEDS ORDERED: IPRATRPIUM/ALBUTEROL 0.5/2.5MG 3 ML NEBU. NEB SCH ×2 (06:00→14:00)
[2016-12-24] MEDS ORDERED: NICOTINE 21MG PATCH. TD SCH (06:00)
[2016-12-24] MEDS ORDERED: ALBUTEROL SULFATE 2.5 MG/3 ML NEBU. NEB PRN ×3 (06:30→13:15)
--- NOTE | 2016-12-24 07:12 | RAD ---
Indication: Short of air Technique: Upright portable chest radiograph was obtained. Comparison is from December 01, 2016. Findings: The lungs are clear. The cardiopulmonary silhouette is within normal limits. The bony structures are intact. Leads overlie the patient. Impression: No active pulmonary disease.
[2016-12-24 07:15] VITALS: BP 148/80
--- NOTE | 2016-12-24 08:31 | EKG ---
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
[2016-12-24 09:11] LABS: BARBITURATES NEG (NEG); BENZODIAZEPINES NEG (NEG); CANNABINOIDS NEG (NEG); COCAINE NEG (NEG); METHADONE NEG (NEG); OPIATES NEG (NEG); PHENCYCLIDINE NEG (NEG)
[2016-12-24 11:00] VITALS: BP 149/80
[2016-12-24] MEDS ORDERED: PROAIR HFA8.5 GM INH (11:54)
[2016-12-24] MEDS ORDERED: IBUP-1007 PO (11:54)
[2016-12-24] MEDS ORDERED: ATOR10TA60 PO (11:54)
--- NOTE | 2016-12-24 12:08 | PDOC1 ---
History and Physical Date of Admission Date of Admission DATE: 12/24/16 TIME: 12:08 Source Source: Chart review, Patient History of Present Illness History of Present Illness Mr. Dorman is a 56 year old male admit overnight from ER with worsenign shortness of breath from home. he has not felt well for almost a week, chills and weakness and cough, +clear sputum. Almsot a week of increasing shortness of air. Has been compliant with his medications. He has new swelling in his legs, and is upset about his toenails, w/ fungus PCP Dr Tovar. ongoing use of tobacco. 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 Past Medical History Cardiovascular: HTN Pulmonary: No pertinent hx CENTRAL NERVOUS SYSTEM: Other GI: No pertinent hx Heme/Onc: No pertinent hx Hepatobiliary: No pertinent hx Psych: No pertinent hx Musculoskeletal: Osteoarthritis Rheumatologic: No pertinent hx Infectious disease: No pertinent hx Renal/: No pertinent hx Endocrine: Diabetes Past Surgical History Past Surgical History: Other Family History Family History: Hypertension Social History Smoke: <1 pack per day ALCOHOL: none Drugs: None Current Problem List Problem List Problems Medical Problems: (1) COPD with acute exacerbation Status: Acute (2) Dyspnea Status: Acute Problems: Current Medications Current Medications Current Medications Albuterol/ Ipratropium (Duoneb) 3 ml 1X ONCE NEB Last administered on 04:35; Start 12/24/16 at 05:00; Stop 12/24/16 at 05:01; Status DC Methylprednisolone Sodium Succinate (SOLU-Medrol 125MG VIAL) 125 mg 1X ONCE IV Last administered on 12/24/16 05:22; Start 12/24/16 at 05:30; Stop at 05:31; Status DC Ondansetron HCl (Zofran) 4 mg PRN Q8HRS PRN IV NAUSEA/VOMITING Last administered on 12/24/16 09:04; Start 12/24/16 at 05:15; Stop 12/25/16 at 05 :14 Albuterol/ Ipratropium (Duoneb) 3 ml Q3HRS NEB Last administered on 12/24/16 06:00; Start 12/24/16 at 06:00; Stop 12/24/16 at 06:17; Status DC Methylprednisolone Sodium Succinate (SOLU-Medrol 40MG VIAL) 40 mg Q8HRS IV ; Start 12/24/16 at 14:00 Nicotine (Nicoderm Cq 21mg) 1 patch DAILY TD Last administered on 12/24/16t 05 :22; Start 12/24/16 at 06:00 Albuterol Sulfate (Ventolin Neb Soln) 2.5 mg PRN Q3HRS PRN NEB SHORTNESS OF BREATH; Start 12/24/16 at 06:30; Stop 12/24/16 at 08:03; Status DC Albuterol Sulfate (Ventolin Neb Soln) 2.5 mg PRN Q4HRS PRN NEB SHORTNESS OF BREATH; Start 12/24/16 at 08:15 Active Scripts Active Tessalon Perle (Benzonatate) 100 Mg Capsule 1 Cap PO TID Pepcid (Famotidine) 20 Mg Tablet 20 Mg PO BID Medrol (Methylprednisolone) 4 Mg Tab.ds.pk 1 Pkg PO UD Lasix (Furosemide) 40 Mg Tablet 1 Tab PO DAILY Benadryl (Diphenhydramine Hcl) 25 Mg Capsule 2 Cap PO Q6H PRN Keflex (Cephalexin) 500 Mg Capsule 1 Cap PO BID Tramadol Hcl 50 Mg Tablet 50 Mg PO PRN Q6HRS PRN Gabapentin 300 Mg Capsule 300 Mg PO TID 30 Days Triamterene-Hctz 37.5-25 Mg Tb (Triamterene/Hydrochlorothiazid) 1 Each Tablet 37.5 Mg PO DAILY 30 Days Buspirone Hcl 15 Mg Tablet 1 Tab PO BID PRN 30 Days Aspir 81 (Aspirin) 81 Mg Tablet.dr 81 Mg PO DAILY 30 Days Percocet 5-325 Mg Tablet (Oxycodone/Acetaminophen) 1 Each Tablet 1-2 Tab PO Q4- 6HRS Zofran Odt (Ondansetron) 4 Mg Tab.rapdis 4 Mg PO BID PRN Prednisone 20 Mg Tablet 40 Mg PO DAILY 5 Days Reported Atorvastatin Calcium 10 Mg Tablet 1 Tab PO DAILY Proair Hfa Inhaler (Albuterol Sulfate) 8.5 Gm Hfa.aer.ad 1 Puff INH PRN Q6HRS PRN Ibuprofen 600 Mg Tablet 600 Mg PO PRN Q6HRS PRN Azelastine Hcl 137 Mcg/0.137 Ml [place].pump 1 Spr NS DAILY Loratadine 10 Mg Tablet 10 Mg PO DAILY Allergies Allergies: Coded Allergies: azithromycin (Unverified Allergy, Intermediate, nose bleed, 01/29/14) lisinopril (Verified Allergy, Intermediate, 07/23/15) losartan (Verified Allergy, Intermediate, 10/10/16) PT STATES HE DOES NOT REMEMBER ANY ALLERGY TO THIS DRUG triamcinolone (Verified Allergy, Intermediate, rash, 10/09/16) ROS General: YES: Chills, Fatigue, Malaise, Appetite PSYCHOLOGICAL ROS: No: Anxiety, Behavioral Disorder, Concentration difficultie , Decreased libido, Depression, Disorientation, Hallucinations, Hostility, Irritablity, Memory difficulties, Mood Swings, Obsessive thoughts, Physical abuse, Sexual abuse, Sleep disturbances, Suicidal ideation, Other Eyes: No Blurry vision, No Decreased vision, No Double vision, No Dry eyes, No Excessive tearing, No Eye Pain, No Itchy Eyes, No Loss of vision, No Photophobia , No Scotomata, No Uses contacts, No Uses glasses, No Other HEENT: YES: Heacaches, No: Visual Changes, Hearing change, Nasal congestion, Nasal discharge, Oral lesions, Sinus pain, Sore Throat, Epistaxis, Sneezing, Snoring, Tinnitus, Vertigo, Vocal changes, Other Respiratory: YES: Cough, SOB with excertion, Sputum Changes, No: Hemoptysis, Orthopnea, Pleuritic Pain, Shortness of breath, Stridor, Tachypnea, Wheezing, Other Cardiovascular: No Chest Pain, No Palpitations, No Orthopnea, No Paroxysmal Noc. Dyspnea, No Edema, No Lt Headedness, No Other Gastrointestinal: Yes Nausea Genitourinary: No Dysuria, No Frequency, No Incontinence, No Hematuria, No Retention, No Discharge, No Urgency, No Pain, No Flank Pain, No Other, No , No , No , No , No , No , No Musculoskeletal: Yes Joint Pain, Yes Joint Stiffness, No Gait Disturbance, No Joint Swelling, No Muscle Pain, No Muscular Weakness , No Pain In:, No Swelling In:, No Other Neurological: No Behavorial Changes, No Bowel/Bladder ControlChng, No Confusion , No Dizziness, No Gait Disturbance, No Headaches, No Impaired Coord/balance, No Memory Loss, No Numbness/Tingling, No Seizures, No Speech Problems, No Tremors, No Visual Changes, No Weakness, No Other Skin: No Dry Skin, No Eczema, No Hair Changes, No Lumps, No Mole Changes, No Mottling, No Nail Changes, No Pruritus, No Rash, No Skin Lesion Changes, No Other, No Acne Physical Exam General: Alert, Cooperative, mild distress HEENT: Atraumatic, PERRLA Lungs: Clear to auscultation Heart: no gallops, no murmurs Abdomen: Normal bowel sounds Extremities: No clubbing, No edema Skin: No rashes Neuro: Normal speech, Sensation intact Psych/Mental Status: Mental status NL, Mood NL Vitals Vitals Vital Signs Date Time Temp Pulse Resp B/P (MAP) Pulse Ox O2 Delivery O2 Flow Rate FiO2 12/24/16 11:00 97.8 97 20 149/80 (103) 96 Room Air 97.8 12/24/16 10:43 2.0 Labs Labs Laboratory Tests Test 12/24/16 04:30 12/24/16 08:52 White Blood Count 10.0 x10^3/uL (4.0-11.0) Red Blood Count 4.45 x10^6/uL (4.30-5.70) Hemoglobin 13.0 g/dL (13.0-17.5) Hematocrit 39.4 % (39.0-53.0) Mean Corpuscular Volume 89 fL (79-100) Mean Corpuscular Hemoglobin 29 pg (25-35) Mean Corpuscular Hemoglobin Concent 33 g/dL (31-37) Red Cell Distribution Width 15.4 % (11.5-14.5) Platelet Count 304 x10^3/uL (140-400) Neutrophils (%) (Auto) 66 % (31-73) Lymphocytes (%) (Auto) 25 % (24-48) Monocytes (%) (Auto) 7 % (0-9) Eosinophils (%) (Auto) 2 % (0-3) Basophils (%) (Auto) 1 % (0-3) Neutrophils # (Auto) 6.6 x10^3uL (1.8-7.7) Lymphocytes # (Auto) 2.5 x10^3/uL (1.0-4.8) Monocytes # (Auto) 0.7 x10^3/uL (0.0-1.1) Eosinophils # (Auto) 0.1 x10^3/uL (0.0-0.7) Basophils # (Auto) 0.1 x10^3/uL (0.0-0.2) Prothrombin Time 13.3 SEC (11.7-14.0) Prothromb Time International Ratio 1.1 (0.8-1.1) Sodium Level 138 mmol/L (136-145) Potassium Level 3.7 mmol/L (3.5-5.1) Chloride Level 103 mmol/L (98-107) Carbon Dioxide Level 27 mmol/L (21-32) Anion Gap 8 (6-14) Blood Urea Nitrogen 13 mg/dL (8-26) Creatinine 0.8 mg/dL (0.7-1.3) Estimated GFR (Cockcroft-Gault) 121.0 BUN/Creatinine Ratio 16 (6-20) Glucose Level 122 mg/dL (70-99) Lactic Acid Level 1.5 mmol/L (0.4-2.0) Calcium Level 8.7 mg/dL (8.5-10.1) Total Bilirubin 0.4 mg/dL (0.2-1.0) Aspartate Amino Transf (AST/SGOT) 23 U/L (15-37) Alanine Aminotransferase (ALT/SGPT) 26 U/L (16-63) Alkaline Phosphatase 70 U/L (46-116) Creatine Kinase 441 U/L (39-308) Creatine Kinase MB (Mass) 3.1 ng/mL (0.0-3.6) Creatine Kinase MB Relative Index 0.7 % (0-4) Troponin I Quantitative < 0.017 ng/mL (0.000-0.055) QD-Nvq-T-Type Natriuretic Peptide 70 pg/mL (0-124) Total Protein 6.8 g/dL (6.4-8.2) Albumin 3.1 g/dL (3.4-5.0) Albumin/Globulin Ratio 0.8 (1.0-1.7) Lipase 135 U/L (73-393) Urine Opiates Screen Neg (NEG) Urine Methadone Screen Neg (NEG) Urine Barbiturates Neg (NEG) Urine Phencyclidine Screen Neg (NEG) Urine Amphetamine/Methamphetamine Neg (NEG) Urine Benzodiazepines Screen Neg (NEG) Urine Cocaine Screen Neg (NEG) Urine Cannabinoids Screen Neg (NEG) Urine Ethyl Alcohol Neg (NEG) Laboratory Tests Test 12/24/16 04:30 12/24/16 08:52 White Blood Count 10.0 x10^3/uL (4.0-11.0) Red Blood Count 4.45 x10^6/uL (4.30-5.70) Hemoglobin 13.0 g/dL (13.0-17.5) Hematocrit 39.4 % (39.0-53.0) Mean Corpuscular Volume 89 fL (79-100) Mean Corpuscular Hemoglobin 29 pg (25-35) Mean Corpuscular Hemoglobin Concent 33 g/dL (31-37) Red Cell Distribution Width 15.4 % (11.5-14.5) Platelet Count 304 x10^3/uL (140-400) Neutrophils (%) (Auto) 66 % (31-73) Lymphocytes (%) (Auto) 25 % (24-48) Monocytes (%) (Auto) 7 % (0-9) Eosinophils (%) (Auto) 2 % (0-3) Basophils (%) (Auto) 1 % (0-3) Neutrophils # (Auto) 6.6 x10^3uL (1.8-7.7) Lymphocytes # (Auto) 2.5 x10^3/uL (1.0-4.8) Monocytes # (Auto) 0.7 x10^3/uL (0.0-1.1) Eosinophils # (Auto) 0.1 x10^3/uL (0.0-0.7) Basophils # (Auto) 0.1 x10^3/uL (0.0-0.2) Prothrombin Time 13.3 SEC (11.7-14.0) Prothromb Time International Ratio 1.1 (0.8-1.1) Sodium Level 138 mmol/L (136-145) Potassium Level 3.7 mmol/L (3.5-5.1) Chloride Level 103 mmol/L (98-107) Carbon Dioxide Level 27 mmol/L (21-32) Anion Gap 8 (6-14) Blood Urea Nitrogen 13 mg/dL (8-26) Creatinine 0.8 mg/dL (0.7-1.3) Estimated GFR (Cockcroft-Gault) 121.0 BUN/Creatinine Ratio 16 (6-20) Glucose Level 122 mg/dL (70-99) Lactic Acid Level 1.5 mmol/L (0.4-2.0) Calcium Level 8.7 mg/dL (8.5-10.1) Total Bilirubin 0.4 mg/dL (0.2-1.0) Aspartate Amino Transf (AST/SGOT) 23 U/L (15-37) Alanine Aminotransferase (ALT/SGPT) 26 U/L (16-63) Alkaline Phosphatase 70 U/L (46-116) Creatine Kinase 441 U/L (39-308) Creatine Kinase MB (Mass) 3.1 ng/mL (0.0-3.6) Creatine Kinase MB Relative Index 0.7 % (0-4) Troponin I Quantitative < 0.017 ng/mL (0.000-0.055) JH-Vmt-U-Type Natriuretic Peptide 70 pg/mL (0-124) Total Protein 6.8 g/dL (6.4-8.2) Albumin 3.1 g/dL (3.4-5.0) Albumin/Globulin Ratio 0.8 (1.0-1.7) Lipase 135 U/L (73-393) Urine Opiates Screen Neg (NEG) Urine Methadone Screen Neg (NEG) Urine Barbiturates Neg (NEG) Urine Phencyclidine Screen Neg (NEG) Urine Amphetamine/Methamphetamine Neg (NEG) Urine Benzodiazepines Screen Neg (NEG) Urine Cocaine Screen Neg (NEG) Urine Cannabinoids Screen Neg (NEG) Urine Ethyl Alcohol Neg (NEG) VTE Prophylaxis Ordered VTE Prophylaxis Devices: No VTE Pharmacological Prophylaxi: Yes Assessment/Plan Assessment/Plan acute hypoxia acute exacerbation of COPD, nebs, steroids, doxy, allergic to azithro new LE edema, obesity, BMI 37, check echo, long standing HTn, acute on chronic diastolic CHF, consult CV ABHINAV ROGERS MD Dec 24, 2016 12:08
[2016-12-24] MEDS ORDERED: diphenhydrAMINE HCL 25 MG CAPSULE PO PRN (13:00)
[2016-12-24] MEDS ORDERED: oxyCODONE/APAP 5/325 1 TAB TABLET PO PRN (13:00)
[2016-12-24] MEDS ORDERED: busPIRone 5 MG TABLET. PO PRN (13:00)
[2016-12-24] MEDS ORDERED: TRIAMTERENE/HCTZ 37.5/25MG TABLET. PO SCH (13:30)
[2016-12-24] MEDS ORDERED: CETIRIZINE HCL 10 MG TABLET. PO SCH (13:30)
[2016-12-24] MEDS ORDERED: DOXYCYCLINE HYCLATE 100 MG TABLET PO ONE (13:30)
[2016-12-24] MEDS ORDERED: FUROSEMIDE 40 MG TABLET. PO SCH (13:30)
[2016-12-24] MEDS ORDERED: GABAPENTIN 300 MG CAPSULE. PO SCH (14:00)
[2016-12-24] MEDS ORDERED: BENZONATATE 100 MG CAPSULE. PO SCH (14:00)
[2016-12-24] MEDS ORDERED: methylPREDNISolone SOD SUCC PF 40 MG/ML VIAL. IV SCH (14:00)
[2016-12-24 15:00] VITALS: BP 144/96
[2016-12-24] MEDS ORDERED: ENOXAPARIN 40 MG/0.4 ML SYRINGE. SQ SCH (16:00)
[2016-12-24 19:05] VITALS: BP 128/71
--- NOTE | 2016-12-24 19:27 | PDOC ---
PULMONARY PROGRESS NOTES Vitals Vital Signs Date Time Temp Pulse Resp B/P (MAP) Pulse Ox O2 Delivery O2 Flow Rate FiO2 12/24/16 15:00 97.6 93 20 144/96 (112) 94 Room Air 97.6 12/24/16 10:43 2.0 Labs Laboratory Tests Test 12/24/16 04:30 12/24/16 08:52 White Blood Count 10.0 x10^3/uL (4.0-11.0) Red Blood Count 4.45 x10^6/uL (4.30-5.70) Hemoglobin 13.0 g/dL (13.0-17.5) Hematocrit 39.4 % (39.0-53.0) Mean Corpuscular Volume 89 fL (79-100) Mean Corpuscular Hemoglobin 29 pg (25-35) Mean Corpuscular Hemoglobin Concent 33 g/dL (31-37) Red Cell Distribution Width 15.4 % (11.5-14.5) Platelet Count 304 x10^3/uL (140-400) Neutrophils (%) (Auto) 66 % (31-73) Lymphocytes (%) (Auto) 25 % (24-48) Monocytes (%) (Auto) 7 % (0-9) Eosinophils (%) (Auto) 2 % (0-3) Basophils (%) (Auto) 1 % (0-3) Neutrophils # (Auto) 6.6 x10^3uL (1.8-7.7) Lymphocytes # (Auto) 2.5 x10^3/uL (1.0-4.8) Monocytes # (Auto) 0.7 x10^3/uL (0.0-1.1) Eosinophils # (Auto) 0.1 x10^3/uL (0.0-0.7) Basophils # (Auto) 0.1 x10^3/uL (0.0-0.2) Prothrombin Time 13.3 SEC (11.7-14.0) Prothromb Time International Ratio 1.1 (0.8-1.1) Sodium Level 138 mmol/L (136-145) Potassium Level 3.7 mmol/L (3.5-5.1) Chloride Level 103 mmol/L (98-107) Carbon Dioxide Level 27 mmol/L (21-32) Anion Gap 8 (6-14) Blood Urea Nitrogen 13 mg/dL (8-26) Creatinine 0.8 mg/dL (0.7-1.3) Estimated GFR (Cockcroft-Gault) 121.0 BUN/Creatinine Ratio 16 (6-20) Glucose Level 122 mg/dL (70-99) Lactic Acid Level 1.5 mmol/L (0.4-2.0) Calcium Level 8.7 mg/dL (8.5-10.1) Total Bilirubin 0.4 mg/dL (0.2-1.0) Aspartate Amino Transf (AST/SGOT) 23 U/L (15-37) Alanine Aminotransferase (ALT/SGPT) 26 U/L (16-63) Alkaline Phosphatase 70 U/L (46-116) Creatine Kinase 441 U/L (39-308) Creatine Kinase MB (Mass) 3.1 ng/mL (0.0-3.6) Creatine Kinase MB Relative Index 0.7 % (0-4) Troponin I Quantitative < 0.017 ng/mL (0.000-0.055) OQ-Ydc-C-Type Natriuretic Peptide 70 pg/mL (0-124) Total Protein 6.8 g/dL (6.4-8.2) Albumin 3.1 g/dL (3.4-5.0) Albumin/Globulin Ratio 0.8 (1.0-1.7) Lipase 135 U/L (73-393) Urine Opiates Screen Neg (NEG) Urine Methadone Screen Neg (NEG) Urine Barbiturates Neg (NEG) Urine Phencyclidine Screen Neg (NEG) Urine Amphetamine/Methamphetamine Neg (NEG) Urine Benzodiazepines Screen Neg (NEG) Urine Cocaine Screen Neg (NEG) Urine Cannabinoids Screen Neg (NEG) Urine Ethyl Alcohol Neg (NEG) Laboratory Tests Test 12/24/16 04:30 12/24/16 08:52 White Blood Count 10.0 x10^3/uL (4.0-11.0) Red Blood Count 4.45 x10^6/uL (4.30-5.70) Hemoglobin 13.0 g/dL (13.0-17.5) Hematocrit 39.4 % (39.0-53.0) Mean Corpuscular Volume 89 fL (79-100) Mean Corpuscular Hemoglobin 29 pg (25-35) Mean Corpuscular Hemoglobin Concent 33 g/dL (31-37) Red Cell Distribution Width 15.4 % (11.5-14.5) Platelet Count 304 x10^3/uL (140-400) Neutrophils (%) (Auto) 66 % (31-73) Lymphocytes (%) (Auto) 25 % (24-48) Monocytes (%) (Auto) 7 % (0-9) Eosinophils (%) (Auto) 2 % (0-3) Basophils (%) (Auto) 1 % (0-3) Neutrophils # (Auto) 6.6 x10^3uL (1.8-7.7) Lymphocytes # (Auto) 2.5 x10^3/uL (1.0-4.8) Monocytes # (Auto) 0.7 x10^3/uL (0.0-1.1) Eosinophils # (Auto) 0.1 x10^3/uL (0.0-0.7) Basophils # (Auto) 0.1 x10^3/uL (0.0-0.2) Prothrombin Time 13.3 SEC (11.7-14.0) Prothromb Time International Ratio 1.1 (0.8-1.1) Sodium Level 138 mmol/L (136-145) Potassium Level 3.7 mmol/L (3.5-5.1) Chloride Level 103 mmol/L (98-107) Carbon Dioxide Level 27 mmol/L (21-32) Anion Gap 8 (6-14) Blood Urea Nitrogen 13 mg/dL (8-26) Creatinine 0.8 mg/dL (0.7-1.3) Estimated GFR (Cockcroft-Gault) 121.0 BUN/Creatinine Ratio 16 (6-20) Glucose Level 122 mg/dL (70-99) Lactic Acid Level 1.5 mmol/L (0.4-2.0) Calcium Level 8.7 mg/dL (8.5-10.1) Total Bilirubin 0.4 mg/dL (0.2-1.0) Aspartate Amino Transf (AST/SGOT) 23 U/L (15-37) Alanine Aminotransferase (ALT/SGPT) 26 U/L (16-63) Alkaline Phosphatase 70 U/L (46-116) Creatine Kinase 441 U/L (39-308) Creatine Kinase MB (Mass) 3.1 ng/mL (0.0-3.6) Creatine Kinase MB Relative Index 0.7 % (0-4) Troponin I Quantitative < 0.017 ng/mL (0.000-0.055) LO-Igk-M-Type Natriuretic Peptide 70 pg/mL (0-124) Total Protein 6.8 g/dL (6.4-8.2) Albumin 3.1 g/dL (3.4-5.0) Albumin/Globulin Ratio 0.8 (1.0-1.7) Lipase 135 U/L (73-393) Urine Opiates Screen Neg (NEG) Urine Methadone Screen Neg (NEG) Urine Barbiturates Neg (NEG) Urine Phencyclidine Screen Neg (NEG) Urine Amphetamine/Methamphetamine Neg (NEG) Urine Benzodiazepines Screen Neg (NEG) Urine Cocaine Screen Neg (NEG) Urine Cannabinoids Screen Neg (NEG) Urine Ethyl Alcohol Neg (NEG) Medications Active Scripts Medications Dose Route/Sig Max Daily Dose Days Date Category Atorvastatin Calcium 10 Mg Tablet 1 Tab PO DAILY 12/24/16 Reported Proair Hfa Inhaler (Albuterol Sulfate) 8.5 Gm Hfa.aer.ad 1 Puff INH PRN Q6HRS PRN 12/24/16 Reported Ibuprofen 600 Mg Tablet 600 Mg PO PRN Q6HRS PRN 12/24/16 Reported Tessalon Perle (Benzonatate) 100 Mg Capsule 1 Cap PO TID 12/12/16 Rx Pepcid (Famotidine) 20 Mg Tablet 20 Mg PO BID 12/03/16 Rx Medrol (Methylprednisolone) 4 Mg Tab.ds.pk 1 Pkg PO UD 12/03/16 Rx Lasix (Furosemide) 40 Mg Tablet 1 Tab PO DAILY 12/01/16 Rx Benadryl (Diphenhydramine Hcl) 25 Mg Capsule 2 Cap PO Q6H PRN 11/16/16 Rx Keflex (Cephalexin) 500 Mg Capsule 1 Cap PO BID 11/16/16 Rx Tramadol Hcl 50 Mg Tablet 50 Mg PO PRN Q6HRS PRN 10/10/16 Rx Gabapentin 300 Mg Capsule 300 Mg PO TID 30 10/10/16 Rx Triamterene-Hctz 37.5-25 Mg Tb (Triamterene/Hydrochlorothiazid) 1 Each Tablet 37.5 Mg PO DAILY 30 10/10/16 Rx Buspirone Hcl 15 Mg Tablet 1 Tab PO BID PRN 30 10/10/16 Rx Aspir 81 (Aspirin) 81 Mg Tablet.dr 81 Mg PO DAILY 30 10/10/16 Rx Azelastine Hcl 137 Mcg/0.137 Ml Amity.pump 1 Spr NS DAILY 10/09/16 Reported Loratadine 10 Mg Tablet 10 Mg PO DAILY 10/09/16 Reported Percocet 5-325 Mg Tablet (Oxycodone/Acetaminophen) 1 Each Tablet 1-2 Tab PO Q4-6HRS 09/17/16 Rx Zofran Odt (Ondansetron) 4 Mg Tab.rapdis 4 Mg PO BID PRN 08/10/15 Rx Prednisone 20 Mg Tablet 40 Mg PO DAILY 5 07/23/15 Rx Impression . FULL NOTE DICTATED AECOPD A BRONCHITIS SHANNAN DAWKINS MD Dec 24, 2016 19:27
[2016-12-24] MEDS ORDERED: DOXYCYCLINE HYCLATE 100 MG TABLET PO SCH (21:00)
[2016-12-24] MEDS ORDERED: FAMOTIDINE 20 MG TABLET. PO SCH (21:00)
[2016-12-24] MEDS ORDERED: ATORVASTATIN CALCIUM 10 MG TABLET. PO SCH (21:00)
--- NOTE | 2016-12-24 21:15 | CARD ---
APPROVED REPORT EXAM: Two-dimensional and M-mode echocardiogram with Doppler and color Doppler. Other Information Quality : Average INDICATION Congestive Heart Failure 2D DIMENSIONS Left Atrium(2D)3.5 (1.6-4.0cm)IVSd1.4 (0.7-1.1cm) Aortic Root(2D)2.9 (2.0-3.7cm)LVDd4.4 (3.9-5.9cm) LVOT Diameter2.0 (1.8-2.4cm)PWd1.4 (0.7-1.1cm) LVDs2.8 (2.5-4.0cm)FS (%) 30.0 % SV55.2 mlLVEF(%)60.0 (>50%) Aortic Valve AoV Peak Yasmani.219.0cm/sAoV VTI39.4cm AO Peak GR.19.2mmHgLVOT Peak Yasmani.168.2cm/s AO Mean GR.12mmHgAVA (VMAX)2.50cm2 YEHUDA (VTI)2.50cm2 Mitral Valve MV E Zxoizxsq87.3cm/sMV DECEL ZUXG186ge MV A Velocity0.5cm/sE/A Nvpmz040.6 Tricuspid Valve TR P. Ymmfpvaj930ja/sRAP PPTCALDP2caMx TR Peak Gr.28bvOwORWT54pmMo LEFT VENTRICLE The left ventricle is normal size. There is mild to moderate concentric left ventricular hypertrophy. Left ventricle systolic function is normal. The Ejection Fraction is 55-60%. There is normal LV segm ental wall motion. The diastolic function is normal RIGHT VENTRICLE The right ventricle is normal size. The right ventricular systolic function is normal. ATRIA The left atrium size is normal. The right atrium size is normal. Mobile interatrial septum noted. AORTIC VALVE The aortic valve is mildly calcified but opens well. Doppler and Color Flow revealed no significant a ortic regurgitation. There is no significant aortic valvular stenosis. There is no aortic valvular ve getation. MITRAL VALVE The mitral valve is normal in structure and function. There is no evidence of mitral valve prolapse. There is no mitral valve stenosis. Doppler and Color Flow revealed no mitral valve regurgitation note d. TRICUSPID VALVE The tricuspid valve is normal in structure and function. Doppler and Color Flow revealed mild tricusp id regurgitation. There is mild pulmonary hypertension. There is mild-moderate pulmonary hypertension . The PA pressure was estimated at 39 mmHg. There is no tricuspid valve stenosis. PULMONIC VALVE The pulmonary valve is normal in structure and function. Doppler and Color Flow revealed no pulmonic valvular regurgitation. There is no pulmonic valvular stenosis. GREAT VESSELS The aortic root is normal in size. The ascending aorta is normal in size. The IVC is normal in size a nd collapses >50% with inspiration. PERICARDIAL EFFUSION There is no pleural effusion. There is no evidence of significant pericardial effusion. Critical Notification Critical Value: No <Conclusion> The left ventricle is normal size. There is mild to moderate concentric left ventricular hypertrophy. Left ventricle systolic function is normal. The Ejection Fraction is 55-60%. The diastolic function is normal There is no evidence of significant pericardial effusion. No mitral stenosis or regurgitation. The left atrium is of a normal size. There is no aortic stenosis or regurgitation. Right ventricle is of a normal size with normal systolic function. Doppler and Color Flow revealed mild tricuspid regurgitation. There is mild pulmonary hypertension. There is mild-moderate pulmonary hypertension. The PA pressure was estimated at 39 mmHg. Pulmonic valve is normal.
--- NOTE | 2016-12-25 00:06 | CONS ---
DATE OF CONSULTATION: 12/24/2016 ATTENDING PHYSICIAN: Dr. Chloe Caballero. REASON FOR CONSULTATION: The patient is seen in pulmonary consultation at the request of Dr. Caballero for increasing shortness of air. HISTORY OF PRESENT ILLNESS: The patient is a 56-year-old obese individual with a body mass index of 39, tobacco dependence, has been smoking most of his adult life, experiences acute exacerbation of COPD once or twice per year, presented with increasing shortness of breath over the last week, cough productive of discolored sputum, some lower extremity edema. He had some wheezing. He does not have any metered dose inhalers at home. PAST MEDICAL HISTORY: COPD, undiagnosed hypertension, morbid obesity, diabetes, obstructive sleep apnea, osteoarthritis. PAST SURGICAL HISTORY: None. FAMILY HISTORY: Hypertension. ALLERGIES: ZITHROMAX, LISINOPRIL, LOSARTAN, TRIAMCINOLONE. CURRENT MEDICATIONS: List was reviewed. Please see the MRAD. FAMILY HISTORY: Noncontributory in this case. REVIEW OF SYSTEMS: As indicated above, otherwise, a 10-point system was reviewed and negative. PHYSICAL EXAMINATION: GENERAL: Morbid obese individual in no respiratory distress, currently on 2 liters of oxygen supplementation. HEENT: Eyes, the sclerae were nonicteric. NECK: Jugular venous distention could not be assessed secondary to body habitus. CHEST: Full expansion. LUNGS: Adequate airway flow with no wheezes. CARDIOVASCULAR: Regular rate and rhythm with S1, S2, no S3. ABDOMEN: Soft, nontender, nondistended. EXTREMITIES: No clubbing, cyanosis. Minimal edema. NEUROLOGIC: The patient was awake, alert, following commands. A detailed neuro exam was not performed. LABORATORY DATA: Reviewed. White count was normal. Hemoglobin and hematocrit were noted. INR was 1.1. Electrolytes were noted. Chest x-ray: No acute cardiopulmonary process. IMPRESSION: 1. Progressive dyspnea secondary to acute exacerbation of chronic obstructive pulmonary disease. 2. Acute nonspecific bronchitis. 3. Obesity. 4. Obstructive sleep apnea. 5. Tobacco dependence. PLAN: 1. I concur with current medical management including doxycycline. 2. Possible discharge in the a.m. on prednisone taper and metered dose inhalers. 3. The patient instructed on the importance of discontinuing his tobacco. 4. Continue CPAP at home. 5. Weight reduction. 6. Exercise regimen program on a daily basis, the patient instructed to walk 10-15 minutes per day. I do appreciate the privilege in sharing the patient's care. SHANNAN DAWKINS MD DR: NIKKY/gabrielle JOB#: [id number] / [id number]
--- NOTE | 2016-12-25 05:23 | CONS ---
DATE OF CONSULTATION: HISTORY OF PRESENT ILLNESS: This is a 56-year-old black male who had been requested by Dr. Caballero to see for cardiac evaluation. He had come into the Emergency Room with shortness of breath. He was thought to have COPD with exacerbation and was seen in consultation by Dr. Rausch. Dr. Rausch has dictated a note, but it was not available to me at the time of this dictation. After I entered the room and introduced myself, the patient refused to talk to me. He took his sheets and covered his face. When I asked why he was doing this, he did not reply. I thus came back with the nurse on duty. The nurse talked to him. He said he thought I was a different type of a doctor and did not realize that I was the processing specialist. In any case, he questioned the need for a processing specialist. I then informed him that Dr. Caballero had wanted me to see him. When I started him to ask questions, he was very reluctant to answer and had to be prompted and persuaded by the nurse to answer the questions. He kept saying that he has already answered all these questions to the other doctors. In any case, he denied any chest pain. He denied having any cardiac problems. He denied swelling of the legs or history of myocardial infarction in the past. He did admit to smoking reluctantly. He said he came in with shortness of breath and was feeling better now. I did not ask him any further questions. I did proceed to examine him, which he allowed. The heart sounds are normal. There is no murmur or gallop. The lungs are clear. He had initially told the nurse that he did not want his feet to be seen and so I did not examine his legs. LABORATORY DATA: The EKG was normal. A chest x-ray was normal. Dr. Caballero had requested an echocardiogram. I did see it. The echocardiogram showed moderate concentric left ventricular hypertrophy. The ejection fraction was 55%-60%. The diastolic function was normal. There was no valvular dysfunction. There is mild pulmonary hypertension. Thereafter, I was informed that this patient had signed out AMA and so I did not have a chance to give him the report. In any case, he does not seem to have a cardiac issue. Thank you, Dr. Caballero for asking me to see him. AYLEEN AKINS MD DR: Nelsy JOB#: [id number] / [id number]
[2016-12-25] MEDS ORDERED: ASPIRIN ENTERIC COATED 81 MG TABLET.DR. PO SCH (09:00)
[2016-12-25] MEDS ORDERED: AZELASTINE NASAL SPRAY 30ML BOTTLE. NS SCH (09:00)
[2016-12-31] MEDS ORDERED: APIX5TAB PO (11:09)
[2017-01-12] MEDS ORDERED: CYCL10TA2 PO (01:20)
== END 2016-12-24 22:19 | disposition left against medical advice (07) | DRG 291 ==
LOC: ER 04:10 → 6 SOUTH 05:10
PROVIDERS: ADMIT Internal Medicine; ATTEND Internal Medicine
DX: I50.33 Acute on chronic diastolic (congestive) heart failure (principal); J96.00 Acute respiratory failure, unspecified whether with hypoxia or hypercapnia; J44.0 Chronic obstructive pulmonary disease with (acute) lower respiratory infection; J44.1 Chronic obstructive pulmonary disease with (acute) exacerbation; I11.0 Hypertensive heart disease with heart failure; M19.90 Unspecified osteoarthritis, unspecified site; E11.9 Type 2 diabetes mellitus without complications; F17.210 Nicotine dependence, cigarettes, uncomplicated; R09.02 Hypoxemia; E66.9 Obesity, unspecified; G47.33 Obstructive sleep apnea (adult) (pediatric); J20.9 Acute bronchitis, unspecified; Z88.1 Allergy status to other antibiotic agents; Z79.899 Other long term (current) drug therapy; Z82.49 Family history of ischemic heart disease and other diseases of the circulatory system; Z68.39 Body mass index [BMI] 39.0-39.9, adult; Z90.81 Acquired absence of spleen; Z53.21 Procedure and treatment not carried out due to patient leaving prior to being seen by health care provider
CPT/HCPCS: 36415; 71010; 80053; 80307; 82553; 83605; 83690; 83880; 84484; 85025; 85610; 87040; 93005; 93306; 94250; 94640; 94760; 96374; J1650; J2405; J2920; J2930; J7620; 99285-25; G0479

== ENCOUNTER 2017-01-04 23:13 | Emergency (ER) | payer OTHER ==
[~2017-01-04] VITALS: Ht 182.9 cm; Wt 113.4 kg
[~2017-01-04 23:13] MED LIST changes: +APIX5TAB PO; +ATOR10TA60 PO; +IBUP-1007 PO; +PROAIR HFA8.5 GM INH
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
[2017-01-05] MEDS ORDERED: ONDANSETRON ODT 4 MG TAB.RAPDIS. PO ONE
[2017-01-05] MEDS ORDERED: ALBUTEROL SULFATE 2.5 MG/3 ML NEBU. NEB ONE
[2017-01-05 00:15] VITALS: BP 154/71
[2017-01-05] MEDS ORDERED: APIXABAN 5 MG TABLET. PO ONE (01:30)
--- NOTE | 2017-01-05 07:55 | RAD ---
CHEST AP ONLY Clinical Indication: cough Comparison: Chest radiograph performed 12/30/2016, CTA chest dated 12/30/2016 Findings: Low lung volumes. No focal consolidation. Stable pulmonary vasculature. No pleural effusion or pneumothorax. The cardiomediastinal silhouette and great vessels are stable. Unchanged thickening of the right paratracheal stripe. No acute osseous abnormality. IMPRESSION: 1. No focal consolidation. 2. Unchanged thickening of the right paratracheal stripe consistent with right paratracheal mass seen on CT.
--- NOTE | 2017-01-05 12:10 | EKG ---
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
[2017-01-12] MEDS ORDERED: CYCL10TA2 PO (01:20)
== END 2017-01-05 01:18 | disposition home or self-care (01) ==
LOC: ER 23:13
DX: J42 Unspecified chronic bronchitis (principal); E11.9 Type 2 diabetes mellitus without complications; I10 Essential (primary) hypertension; G89.29 Other chronic pain; Z79.01 Long term (current) use of anticoagulants; Z86.711 Personal history of pulmonary embolism; Z88.1 Allergy status to other antibiotic agents; Z88.8 Allergy status to other drugs, medicaments and biological substances
CPT/HCPCS: 71010; 82962; 93005; 94250; 94640; 99285; J7613; Q0162

== ENCOUNTER 2017-01-14 01:23 | Emergency (ER) | payer OTHER ==
[~2017-01-14 01:23] MED LIST changes: +CYCL10TA2 PO
[2017-01-14 01:25] VITALS: BP 189/92
--- NOTE | 2017-01-14 02:19 | PHYS DOC ---
Past Medical History Past Medical History: Anxiety, Depression, Hypertension, Schizophrenia, Other Additional Past Medical Histor: PE, NEUROPATHY Past Surgical History: Splenectomy, Other Additional Past Surgical Histo: COLONOSCOPY Alcohol Use: None Drug Use: None Adult General Chief Complaint Chief Complaint: NAUSEA/VOMITING/DIARRHA HPI HPI 66-year-old male presenting to the emergency department today with nausea and vomiting over the past 24 hours. He complains of a generalized cramping abdominal pain that is nonradiating intermittent and without alleviating factors. It does not localize. It is nonmigratory. He has a history of PE for which he is on Eliquis therapy. He denies diarrhea. His vomitus is nonbloody nonbilious. He denies blood in his stool. Review of systems is negative for chest pain shortness of breath fevers or chills. All other review of systems is negative unless otherwise noted in history of present illness. ED course: 56 showed male presenting to the emergency department with nausea vomiting and generalized abdominal pain. Triage vital signs show the patient to be afebrile with mild tachycardia. IV established, fluid given along with nausea and pain medication. Blood work obtained along with EKG. EKG obtained and reviewed by myself shows sinus rhythm with a regular/minimally tachycardic rate. ST segments are congruent. Not consistent with ACS. CT the abdomen pelvis obtained. Blood work obtained and unremarkable. Abdomen pelvis CT shows mildly enlarged lymph nodes which will need follow-up. Communicated this [id number] with the patient and provided copy of CT to the patient. Otherwise workup unremarkable. Patient discharged home on Zofran. The patient was then discharged home in stable condition to follow up with their primary care physician over the next 2-3 days. They were to return if their symptoms worsened or if they were concerned for any reason. [id number] discharge instructions and return precautions were given. Patient's questions were answered to their satisfaction. Patient is comfortable plan. Review of Systems Review of Systems SEE ABOVE. Current Medications Current Medications Current Medications Medications (Trade) Dose Ordered Sig/Darin Start Time Stop Time Status Last Admin Dose Admin Ondansetron HCl (Zofran) 4 mg 1X ONCE 01/14/17 02:15 01/14/17 02:16 DC 01/14/17 02:33 4 MG Sodium Chloride 1,000 ml @ 1,000 mls/hr 1X ONCE 01/14/17 02:15 01/14/17 03:14 DC 01/14/17 02:33 1,000 MLS/HR Allergies Allergies Allergies Coded Allergies Type Severity Reaction Last Updated Verified azithromycin Allergy Intermediate nose bleed 12/31/16 Yes lisinopril Allergy Intermediate 07/23/15 Yes losartan Allergy Intermediate 10/10/16 Yes triamcinolone Allergy Intermediate rash 10/09/16 Yes triamterene Allergy Intermediate Itching 12/30/16 Yes Physical Exam Physical Exam SEE ABOVE Constitutional: Well developed, well nourished, no acute distress, non-toxic appearance. HENT: Normocephalic, atraumatic, bilateral external ears normal, oropharynx moist, no oral exudates, nose normal. [] Eyes: PERRLA, EOMI, conjunctiva normal, no discharge. Neck: Normal range of motion, no tenderness, supple, no stridor. Cardiovascular:Heart rate regular rhythm, no murmur [] Lungs & Thorax: Bilateral breath sounds clear to auscultation [] Abdomen: Soft nontender abdomen without rebound tenderness or guarding present. Negative McBurneys point. Negative Sanchez sign. No ecchymosis present. Skin: Warm, dry, no erythema, no rash. Back: No tenderness, no CVA tenderness. [] Extremities: No tenderness, no cyanosis, no clubbing, ROM intact, no edema. [] Neurologic: Alert and oriented X 3, normal motor function, normal sensory function, no focal deficits noted. Psychologic: Affect normal, judgement normal, mood normal. [] Current Patient Data Vital Signs Vital Signs Date Time Temp Pulse Resp B/P (MAP) Pulse Ox O2 Delivery O2 Flow Rate FiO2 01/14/17 01:25 98.0 102 25 189/92 (124) 95 Room Air 98.0 Lab Values Laboratory Tests Test 01/14/17 02:15 01/14/17 03:00 White Blood Count 11.6 x10^3/uL (4.0-11.0) H Red Blood Count 4.44 x10^6/uL (4.30-5.70) Hemoglobin 12.8 g/dL (13.0-17.5) L Hematocrit 39.3 % (39.0-53.0) Mean Corpuscular Volume 88 fL (79-100) Mean Corpuscular Hemoglobin 29 pg (25-35) Mean Corpuscular Hemoglobin Concent 33 g/dL (31-37) Red Cell Distribution Width 15.3 % (11.5-14.5) H Platelet Count 343 x10^3/uL (140-400) Neutrophils (%) (Auto) 73 % (31-73) Lymphocytes (%) (Auto) 18 % (24-48) L Monocytes (%) (Auto) 6 % (0-9) Eosinophils (%) (Auto) 1 % (0-3) Basophils (%) (Auto) 1 % (0-3) Neutrophils # (Auto) 8.5 x10^3uL (1.8-7.7) H Lymphocytes # (Auto) 2.1 x10^3/uL (1.0-4.8) Monocytes # (Auto) 0.7 x10^3/uL (0.0-1.1) Eosinophils # (Auto) 0.2 x10^3/uL (0.0-0.7) Basophils # (Auto) 0.1 x10^3/uL (0.0-0.2) Sodium Level 140 mmol/L (136-145) Potassium Level 3.6 mmol/L (3.5-5.1) Chloride Level 104 mmol/L (98-107) Carbon Dioxide Level 26 mmol/L (21-32) Anion Gap 10 (6-14) Blood Urea Nitrogen 15 mg/dL (8-26) Creatinine 1.0 mg/dL (0.7-1.3) Estimated GFR (Cockcroft-Gault) 93.5 Glucose Level 168 mg/dL (70-99) H Calcium Level 8.5 mg/dL (8.5-10.1) Total Bilirubin 0.5 mg/dL (0.2-1.0) Direct Bilirubin 0.1 mg/dL (0.0-0.2) Aspartate Amino Transferase (AST) 19 U/L (15-37) Alanine Aminotransferase (ALT) 23 U/L (16-63) Alkaline Phosphatase 64 U/L (46-116) Troponin I Quantitative < 0.017 ng/mL (0.000-0.055) Total Protein 6.5 g/dL (6.4-8.2) Albumin 2.9 g/dL (3.4-5.0) L Lipase 88 U/L (73-393) Lactic Acid Level 2.0 mmol/L (0.4-2.0) Laboratory Tests 01/14/17 02:15 Laboratory Tests 01/14/17 02:15 EKG EKG [] Radiology/Procedures Radiology/Procedures [] Course & Med Decision Making Course & Med Decision Making Pertinent Labs and Imaging studies reviewed. (See chart for details) [] Dragon Disclaimer Dragon Disclaimer This electronic medical record was generated, in whole or in part, using a voice recognition dictation system. Departure Departure Impression: Primary Impression: Nausea and vomiting Disposition: HOME, SELF-CARE Condition: STABLE Referrals: UNKNOWN PCP NAME (PCP) Patient Instructions: Nausea and Vomiting Additional Instructions: Thank you for allowing us to participate in your care today. Followup with your primary care physician in 3 days if your symptoms do not improve. Call your Primary Doctor tomorrow and inform them of your visit today. You will need to follow-up with your primary care physician about your enlarged lymph nodes seen on CT scan. I have provided a copy of this CT scan with you. If you do not have a primary care provider you can ask for a list of our primary care providers. Return to the emergency department you have any new or concerning findings. This should be evaluated by the primary care physician and any necessary consulting services for continued management within a few days after discharge. Return to emergency room if you have any new or concerning symptoms including but not limited to fever, chills, nausea, vomiting, intractable pain, any new rashes, chest pain, shortness of air, uncontrolled bleeding, difficulty breathing, and/or vision loss. Scripts Ondansetron (ZOFRAN ODT) 4 Mg Tab.rapdis 1 TAB SL PRN Q8HRS Y for NAUSEA, #6 TAB Prov: ANA MURPHY MD 01/14/17 ANA MURPHY MD Jan 14, 2017 02:18
[2017-01-14 02:28] LABS: BASO # 0.1 x10^3/uL (0.0-0.2); BASO % 1 % (0-3); EOS % 1 % (0-3); HEMATOCRIT 39.3 % (39.0-53.0); HEMOGLOBIN 12.8 g/dL (13.0-17.5); LYMPH # 2.1 x10^3/uL (1.0-4.8); LYMPH % 18 % (24-48); MEAN CORPUSCULAR HEMOGLOBIN 29 pg (25-35); MEAN CORPUSCULAR HGB CONC 33 g/dL (31-37); MEAN CORPUSCULAR VOLUME 88 fL (79-100); MONO % 6 % (0-9); NEUT % 73 % (31-73); PLATELET COUNT 343 x10^3/uL (140-400); RED BLOOD COUNT 4.44 x10^6/uL (4.30-5.70); RED CELL DISTRIBUTION WIDTH 15.3 % (11.5-14.5); WHITE BLOOD COUNT 11.6 x10^3/uL (4.0-11.0)
[2017-01-14] MEDS: IV NORMAL SALINE 1000ML BAG 1,000 ML IV ONE (02:33)
[2017-01-14] MEDS: ONDANSETRON PF 4 MG/2 ML VIAL. IV ONE (02:33)
[2017-01-14 02:46] LABS: CALCIUM 8.5 mg/dL (8.5-10.1); GFR 93.5; POTASSIUM 3.6 mmol/L (3.5-5.1)
[2017-01-14 02:51] LABS: ALBUMIN 2.9 g/dL (3.4-5.0); DIRECT BILIRUBIN 0.1 mg/dL (0.0-0.2); TOTAL BILIRUBIN 0.5 mg/dL (0.2-1.0); TOTAL PROTEIN 6.5 g/dL (6.4-8.2)
--- NOTE | 2017-01-14 03:42 | RAD ---
INDICATION: ABDOMEN PAIN COMPARISON: None. TECHNIQUE: Axial CT images were obtained through the abdomen and pelvis without intravenous contrast. Limited assessment of solid organ structures and vasculature secondary to lack of intravenous contrast. One or more of the following individualized dose reduction techniques were utilized for this examination: 1. Automated exposure control; 2. Adjustment of the mA and/or kV according to patient size; 3. Use of iterative reconstruction technique. FINDINGS: Abdominal aorta is not aneurysmal. Calcific atherosclerosis is visualized. Lymphadenopathy in the bilateral groin. For example measuring up to 19 mm short axis in right groin. Fat-containing right inguinal hernia. No intrahepatic bile duct dilation. Poor evaluation of pancreas without contrast. No definite adjacent fluid collection. Nodularity in the expected region of the spleen with surgical clips. Could be post splenectomy changes with splenules. No left-sided hydronephrosis. No right-sided hydronephrosis. Urinary bladder is partially distended. Appendix not well seen. Enlarged lymph node in the right external iliac region measuring up to 19 mm short axis. No dilated loops of bowel to suggest obstruction. Degenerative changes of spine. There couple of sclerotic foci in the osseous structures. Most commonly bone island unless the patient has history of neoplasm. Mild induration the fat anterior to the urinary bladder near expected location of urachal remnant. Bladder wall mildly prominent. IMPRESSION: 1. No evidence of bowel obstruction or hydronephrosis. 2. Lymphadenopathy is identified within the pelvis and bilateral groin. Could be reactive or neoplastic in nature. A follow-up examination will be needed to ensure this decreases given that neoplastic causes are within the differential. 3. Mild prominence of the wall of the urinary bladder. Could be secondary to lack of distention but would correlate with symptoms in the region to ensure there is not a pathologic etiology such as cystitis or a bladder lesion. Electronically signed by: Ted Suero MD (01/14/2017 3:39 AM) [id number]
[2017-01-14] MEDS ORDERED: ONDA4TAB10 SL (04:17)
--- NOTE | 2017-01-14 06:30 | EKG ---
[facility] [address] [place] [address] Test Date: 2017-01-14 Test Time: 01:56:09 Pat Name: HAMILTON GUTIERREZ Department: Room: Gender: M [employer]: : 1960 Requested By: ANA MURPHY Order Number: [id number] Reading MD: Grabiel Landin MD Measurements Intervals Rosalia Rate: 98 P: 43 ND: 134 QRS: 40 QRSD: 86 T: 29 QT: 344 QTc: 441 Interpretive Statements SINUS RHYTHM Electronically Signed On 01-21-2017 14:39:10 MEDICAL SECRETARY RECEPTIONIST by Grabiel Landin MD
[2017-01-14] MEDS ORDERED: IBUP-1007 PO (13:10)
== END 2017-01-14 05:27 | disposition home or self-care (01) ==
LOC: ER 01:23
DX: R11.2 Nausea with vomiting, unspecified (principal); R10.84 Generalized abdominal pain; R00.0 Tachycardia, unspecified; F20.9 Schizophrenia, unspecified; I10 Essential (primary) hypertension; G62.9 Polyneuropathy, unspecified; Z90.81 Acquired absence of spleen; Z86.711 Personal history of pulmonary embolism; Z88.1 Allergy status to other antibiotic agents; Z88.8 Allergy status to other drugs, medicaments and biological substances
CPT/HCPCS: 36415; 74176; 80048; 80076; 83605; 83690; 84484; 85025; 93005; 96361; 96374; J2405; J7030; 99285-25

== ENCOUNTER 2017-01-25 03:54 | Emergency (ER) | payer OTHER ==
[~2017-01-25 03:54] MED LIST changes: +ONDA4TAB10 SL
[2017-01-25] MEDS ORDERED: IPRATRPIUM/ALBUTEROL 0.5/2.5MG 3 ML NEBU. NEB ONE (04:30)
[2017-01-25] MEDS ORDERED: DOXY100C14 PO (05:08)
[2017-01-25] MEDS ORDERED: PRED50TA PO (05:08)
--- NOTE | 2017-01-25 05:09 | PHYS DOC ---
Past Medical History Past Medical History: Anxiety, Depression, Hypertension, Schizophrenia, Other Additional Past Medical Histor: PE, NEUROPATHY Past Surgical History: Splenectomy, Other Additional Past Surgical Histo: COLONOSCOPY Alcohol Use: None Drug Use: None Adult General Chief Complaint Chief Complaint: Congestion HPI HPI 56-year-old male with a history of schizophrenia and long-term tobacco abuse with COPD now presents to the emergency department complaining of productive cough and mild wheezing. She denies fevers chills sweats or shaking chills. He has no chest pain. Review of Systems Review of Systems Constitutional: Denies fever or chills [] Eyes: Denies change in visual acuity, redness, or eye pain [] HENT: Denies nasal congestion or sore throat [] Respiratory: Denies cough or shortness of breath [] Cardiovascular: No additional information not addressed in HPI [] GI: Denies abdominal pain, nausea, vomiting, bloody stools or diarrhea [] : Denies dysuria or hematuria [] Musculoskeletal: Denies back pain or joint pain [] Integument: Denies rash or skin lesions [] Neurologic: Denies headache, focal weakness or sensory changes [] Endocrine: Denies polyuria or polydipsia [] All other systems were reviewed and found to be within normal limits, except as documented in this note. Current Medications Current Medications Current Medications Medications (Trade) Dose Ordered Sig/Darin Start Time Stop Time Status Last Admin Dose Admin Albuterol/ Ipratropium (Duoneb) 3 ml 1X ONCE 01/25/17 04:30 01/25/17 04:31 UNV 01/25/17 04:45 3 ML Doxycycline Hyclate (Vibra-Tab) 100 mg 1X ONCE 01/25/17 05:15 01/25/17 05:16 Guaifenesin (MUCINEX ER with DM) 1 tab 1X ONCE 01/25/17 05:00 01/25/17 05:01 UNV Guaifenesin (Mucinex) 600 mg STK-MED ONCE 01/25/17 05:12 01/25/17 05:13 DC Prednisone (Prednisone) 60 mg 1X ONCE 01/25/17 05:00 01/25/17 05:01 UNV Allergies Allergies Allergies Coded Allergies Type Severity Reaction Last Updated Verified azithromycin Allergy Intermediate nose bleed 12/31/16 Yes lisinopril Allergy Intermediate 07/23/15 Yes losartan Allergy Intermediate 10/10/16 Yes triamcinolone Allergy Intermediate rash 10/09/16 Yes triamterene Allergy Intermediate Itching 12/30/16 Yes Physical Exam Physical Exam 56-year-old -[place] male obese no acute distress alert communicative cooperative and appropriate. Mild prolonged expirations bilaterally without angelika wheeze. Scattered occasional rhonchi. No Rales or rubs. Benign abdomen normal extremities with no edema Constitutional: Well developed, well nourished, no acute distress, non-toxic appearance. [] HENT: Normocephalic, atraumatic, bilateral external ears normal, oropharynx moist, no oral exudates, nose normal. [] Eyes: PERRLA, EOMI, conjunctiva normal, no discharge. [] Neck: Normal range of motion, no tenderness, supple, no stridor. [] Cardiovascular:Heart rate regular rhythm, no murmur [] Lungs & Thorax: As above Abdomen: Bowel sounds normal, soft, no tenderness, no masses, no pulsatile masses. [] Skin: Warm, dry, no erythema, no rash. [] Back: No tenderness, no CVA tenderness. [] Extremities: No tenderness, no cyanosis, no clubbing, ROM intact, no edema. [] Neurologic: Alert and oriented X 3, normal motor function, normal sensory function, no focal deficits noted. [] Psychologic: Affect normal, judgement normal, mood normal. [] Current Patient Data Vital Signs Vital Signs Date Time Temp Pulse Resp B/P (MAP) Pulse Ox O2 Delivery O2 Flow Rate FiO2 01/25/17 04:50 100 Nasal Cannula 2.0 01/25/17 04:34 98.0 90 16 98.0 EKG EKG [] Radiology/Procedures Radiology/Procedures Chest x-ray chronic changes no acute disease interpreted by me[] Course & Med Decision Making Course & Med Decision Making Pertinent Labs and Imaging studies reviewed. (See chart for details) Signs and symptoms consistent with upper respiratory infection triggering COPD exacerbation a patient with chronic history of tobacco abuse. Patient initially with sats in the low 90s improved after coughing and nebulized therapy. 94% on room air prior to discharge with normal respiratory rate and no distress. Patient feels improved. Doxycycline given in ED as well as prednisone for COPD exacerbation. Patient aware to finish antibiotic as prescribed as well as prednisone once a day for 5 days. He will follow-up with his primary care doctor in 1 day and return immediately for new severe worsening symptoms [] Dragon Disclaimer Dragon Disclaimer This electronic medical record was generated, in whole or in part, using a voice recognition dictation system. Departure Departure Impression: Primary Impression: Upper respiratory infection Additional Impression: COPD exacerbation Disposition: HOME, SELF-CARE Condition: IMPROVED Referrals: NO PCP (PCP) Patient Instructions: Upper Respiratory Infection, Adult Additional Instructions: It appears that you have an upper respiratory infection. It is possible that this could be the result of a bacterial or an atypical bacterial infection however it is also possible that it may be the result of a virus alone. Any pulmonary illnesses complicated by your chronic smoking history and the damage smoking has done to your lungs. Your illness is causing her to have a COPD exacerbation. Finish antibiotic as prescribed]. Use Mucinex DM [id number] as needed for break up mucus and help control cough. Follow-up with your doctor tomorrow for reevaluation and to discuss smoking cessation, and return immediately for new severe or worsening symptoms. Scripts Prednisone (PREDNISONE) 50 Mg Tablet 50 MG PO DAILY for 5 Days, #5 TAB Prov: CHELSEA BOLIVAR MD 01/25/17 Doxycycline Monohydrate (DOXYCYCLINE MONOHYDRATE) 100 Mg Capsule 1 CAP PO BID, #20 CAP Prov: CHELSEA BOLIVAR MD 01/25/17 Problem Qualifiers CHELSEA BOLIVAR MD Jan 25, 2017 05:09
[2017-01-25] MEDS ORDERED: guaiFENesin DM 600/30MG 1 TAB TAB.ER.12H PO ONE (05:15)
[2017-01-25] MEDS ORDERED: DOXYCYCLINE HYCLATE 100 MG TABLET PO ONE (05:15)
[2017-01-25] MEDS ORDERED: predniSONE 20 MG TABLET PO ONE (05:15)
[2017-01-25 05:20] VITALS: BP 165/79
--- NOTE | 2017-01-25 08:35 | RAD ---
PA AND LATERAL CHEST RADIOGRAPH Clinical Indication: cough. Comparison: AP chest 01/09/17. Findings: The cardiomediastinal silhouette is normal. Pulmonary vasculature is normal. The lungs are clear. No pleural effusion or pneumothorax is seen. There is no acute bone abnormality. IMPRESSION: No acute cardiopulmonary process.
== END 2017-01-25 05:30 | disposition home or self-care (01) ==
LOC: ER 03:54
DX: J44.1 Chronic obstructive pulmonary disease with (acute) exacerbation (principal); J06.9 Acute upper respiratory infection, unspecified; G62.9 Polyneuropathy, unspecified; F20.9 Schizophrenia, unspecified; I10 Essential (primary) hypertension; Z88.1 Allergy status to other antibiotic agents; Z88.8 Allergy status to other drugs, medicaments and biological substances; Z86.711 Personal history of pulmonary embolism; Z90.81 Acquired absence of spleen
CPT/HCPCS: 71020; 94250; 94640; 99284; J7512; J7620

== ENCOUNTER 2017-01-28 13:16 | Emergency (ER) | payer OTHER ==
[~2017-01-28 13:16] MED LIST changes: +DOXY100C14 PO; +PRED50TA PO
[2017-01-28] MEDS ORDERED: IPRATRPIUM/ALBUTEROL 0.5/2.5MG 3 ML NEBU. NEB ONE (13:30)
[2017-01-28 13:34] VITALS: BP 173/88
--- NOTE | 2017-01-28 13:34 | PHYS DOC ---
Past Medical History Past Medical History: Anxiety, Depression, Hypertension, Schizophrenia, Other Additional Past Medical Histor: PE, NEUROPATHY Past Surgical History: Splenectomy, Other Additional Past Surgical Histo: COLONOSCOPY Alcohol Use: None Drug Use: None Adult General Chief Complaint Chief Complaint: WEAKNESS/GENERALIZED HPI HPI Patient is a 56 year old male who presents with ongoing cough and shortness of breath. Patient was seen a days ago with same symptoms and started on doxycycline and prednisone. The patient reports he is taking the medication but states he still has the same symptoms. He continues to smoke cigarettes, he is homeless and was hoping he could just "be admitted overnight for a observation stay". He denies any fevers, no chest pain, my care physician as he normally goes into the walk in clinic Review of Systems Review of Systems Constitutional: Denies fever or chills [] Eyes: Denies change in visual acuity, redness, or eye pain [] HENT: Denies nasal congestion or sore throat [] Respiratory: per hpi Cardiovascular: denies chest pain GI: Denies abdominal pain, nausea, vomiting, bloody stools or diarrhea [] : Denies dysuria or hematuria [] Musculoskeletal: Denies back pain or joint pain [] Integument: Denies rash or skin lesions [] Neurologic: Denies headache, focal weakness or sensory changes [] Endocrine: Denies polyuria or polydipsia [] All other systems were reviewed and found to be within normal limits, except as documented in this note. Current Medications Current Medications Current Medications Medications (Trade) Dose Ordered Sig/Darin Start Time Stop Time Status Last Admin Dose Admin Albuterol/ Ipratropium (Duoneb) 3 ml 1X ONCE 01/28/17 13:30 01/28/17 13:31 DC 01/28/17 15:11 3 ML Diphtheria/ Tetanus/Acell Pertussis (Boostrix) 0.5 ml ONCE ONCE 01/28/17 15:15 01/28/17 15:16 01/28/17 15:12 0.5 ML Allergies Allergies Allergies Coded Allergies Type Severity Reaction Last Updated Verified azithromycin Allergy Intermediate nose bleed 12/31/16 Yes lisinopril Allergy Intermediate 07/23/15 Yes losartan Allergy Intermediate 10/10/16 Yes triamcinolone Allergy Intermediate rash 10/09/16 Yes triamterene Allergy Intermediate Itching 12/30/16 Yes Physical Exam Physical Exam Constitutional: Well developed, well nourished, no acute distress, non-toxic appearance.obese HENT: Normocephalic, atraumatic, bilateral external ears normal, oropharynx moist, no oral exudates, nose normal. [] Eyes: PERRLA, EOMI, conjunctiva normal, no discharge. [] Neck: Normal range of motion, no tenderness, supple, no stridor. [] Cardiovascular:Heart rate regular with regular rhythm, no murmur [] Lungs & Thorax: Bilateral breath sounds clear to auscultation , moderate air movement Abdomen: Bowel sounds normal, soft, no tenderness, no masses, no pulsatile masses. [] Skin: Warm, dry, no erythema, no rash. [] Back: No tenderness, no CVA tenderness. [] Extremities: No tenderness, no cyanosis, no clubbing, ROM intact, no edema. [] Neurologic: Alert and oriented X 3, normal motor function, normal sensory function, no focal deficits noted. [] Psychologic: Affect normal, judgement normal, mood normal. [] Current Patient Data Vital Signs Vital Signs Date Time Temp Pulse Resp B/P (MAP) Pulse Ox O2 Delivery O2 Flow Rate FiO2 01/28/17 13:34 98.3 92 27 173/88 (116) 96 Room Air 98.3 Lab Values Laboratory Tests Test 01/28/17 14:10 White Blood Count 11.4 x10^3/uL (4.0-11.0) H Red Blood Count 4.69 x10^6/uL (4.30-5.70) Hemoglobin 13.4 g/dL (13.0-17.5) Hematocrit 41.3 % (39.0-53.0) Mean Corpuscular Volume 88 fL (79-100) Mean Corpuscular Hemoglobin 29 pg (25-35) Mean Corpuscular Hemoglobin Concent 32 g/dL (31-37) Red Cell Distribution Width 15.8 % (11.5-14.5) H Platelet Count 391 x10^3/uL (140-400) Neutrophils (%) (Auto) 86 % (31-73) H Lymphocytes (%) (Auto) 9 % (24-48) L Monocytes (%) (Auto) 4 % (0-9) Eosinophils (%) (Auto) 0 % (0-3) Basophils (%) (Auto) 1 % (0-3) Neutrophils # (Auto) 9.8 x10^3uL (1.8-7.7) H Lymphocytes # (Auto) 1.0 x10^3/uL (1.0-4.8) Monocytes # (Auto) 0.5 x10^3/uL (0.0-1.1) Eosinophils # (Auto) 0.0 x10^3/uL (0.0-0.7) Basophils # (Auto) 0.1 x10^3/uL (0.0-0.2) Segmented Neutrophils % 87 % (35-66) H Lymphocytes % 8 % (24-48) L Monocytes % 5 % (0-10) Toxic Granulation Slight Toxic Vacuolation Slight Platelet Estimate Adequate (ADEQUATE) Sodium Level 139 mmol/L (136-145) Potassium Level 3.9 mmol/L (3.5-5.1) Chloride Level 103 mmol/L (98-107) Carbon Dioxide Level 29 mmol/L (21-32) Anion Gap 7 (6-14) Blood Urea Nitrogen 19 mg/dL (8-26) Creatinine 0.8 mg/dL (0.7-1.3) Estimated GFR (Cockcroft-Gault) 121.0 Glucose Level 113 mg/dL (70-99) H Calcium Level 8.9 mg/dL (8.5-10.1) Laboratory Tests 01/28/17 14:10 Laboratory Tests 01/28/17 14:10 EKG EKG [] Radiology/Procedures Radiology/Procedures CXR: No evidence of acute cardiopulmonary process[] Course & Med Decision Making Course & Med Decision Making Pertinent Labs and Imaging studies reviewed. (See chart for details) I reviewed pt's medical record, he was given duoneb tx, labs and CXR performed Requested tdap and this was given here in the ED. I counseled patient on the need to follow-up with primary care physician and stop smoking. He is given a prescription for pro-air, counseled the patient to continue his prednisone and doxycycline until completed. Dragon Disclaimer Dragon Disclaimer This electronic medical record was generated, in whole or in part, using a voice recognition dictation system. Departure Departure Impression: Primary Impression: Upper respiratory infection Disposition: 01 HOME, SELF-CARE Condition: STABLE Referrals: UNKNOWN PCP NAME (PCP) Scripts Albuterol Sulfate (PROAIR HFA INHALER) 8.5 Gm Hfa.aer.ad 1-2 PUFF INH PRN Q6HRS Y for SHORTNESS OF BREATH, #1 INHALER 0 Refills Prov: MARIALUISA SEGOVIA MD 01/28/17 MARIALUISA SEGOVIA MD Jan 28, 2017 13:34
[2017-01-28 14:16] LABS: BASO # 0.1 x10^3/uL (0.0-0.2); BASO % 1 % (0-3); EOS % 0 % (0-3); HEMATOCRIT 41.3 % (39.0-53.0); HEMOGLOBIN 13.4 g/dL (13.0-17.5); LYMPH % 9 % (24-48); MEAN CORPUSCULAR HEMOGLOBIN 29 pg (25-35); MEAN CORPUSCULAR HGB CONC 32 g/dL (31-37); MEAN CORPUSCULAR VOLUME 88 fL (79-100); MONO % 4 % (0-9); NEUT % 86 % (31-73); PLATELET COUNT 391 x10^3/uL (140-400); RED BLOOD COUNT 4.69 x10^6/uL (4.30-5.70); RED CELL DISTRIBUTION WIDTH 15.8 % (11.5-14.5); WHITE BLOOD COUNT 11.4 x10^3/uL (4.0-11.0)
[2017-01-28 14:27] LABS: CALCIUM 8.9 mg/dL (8.5-10.1); CREATININE 0.8 mg/dL (0.7-1.3); POTASSIUM 3.9 mmol/L (3.5-5.1)
--- NOTE | 2017-01-28 14:36 | RAD ---
2 views of the Chest 01/28/2017 3:29 PM Indication: cough Comparison: January 25, 2017 Findings: There is no focal consolidation or infiltrate identified. There is no effusion or pneumothorax. The cardiomediastinal silhouette and pulmonary vasculature are within normal limits. No osseous abnormality is identified. Impression: No evidence of acute cardiopulmonary process.
[2017-01-28 14:42] LABS: PLT ESTIMATE ADEQUATE (ADEQUATE); TOXIC GRANULATION SLIGHT; TOXIC VACUOLATION SLIGHT
[2017-01-28] MEDS ORDERED: PROAIR HFA8.5 GM INH (14:44)
[2017-01-28] MEDS ORDERED: DIPHTH,PERTUSS(ACELL),TET TOX 0.5 ML DISP.SYRIN. VAX IM ONE (15:15)
== END 2017-01-28 15:21 | disposition home or self-care (01) ==
LOC: ER 13:16
DX: J06.9 Acute upper respiratory infection, unspecified (principal); F41.9 Anxiety disorder, unspecified; F32.9 Major depressive disorder, single episode, unspecified; I10 Essential (primary) hypertension; F20.9 Schizophrenia, unspecified; F17.210 Nicotine dependence, cigarettes, uncomplicated; G62.9 Polyneuropathy, unspecified; Z90.81 Acquired absence of spleen; Z88.1 Allergy status to other antibiotic agents; Z88.8 Allergy status to other drugs, medicaments and biological substances; Z59.0 Homelessness
CPT/HCPCS: 36415; 71020; 80048; 85007; 85025; 90471; 90715; 94250; 94640; 99285; J7620

== ENCOUNTER 2017-02-10 05:34 | Emergency (ER) | payer OTHER ==
[~2017-02-10] VITALS: Ht 175.3 cm; Wt 113.4 kg
[2017-02-10 05:45] VITALS: BP 153/86
[2017-02-10] MEDS ORDERED: AMOX1TAB61 PO (05:52)
[2017-02-10] MEDS ORDERED: GUAI12003 PO (05:52)
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
[2017-02-10] MEDS ORDERED: AMOXICILLIN/K CLAV 875/125MG TABLET. PO ONE (06:00)
== END 2017-02-10 06:09 | disposition home or self-care (01) ==
LOC: ER 05:34
DX: J20.9 Acute bronchitis, unspecified (principal); F41.9 Anxiety disorder, unspecified; F32.9 Major depressive disorder, single episode, unspecified; E11.40 Type 2 diabetes mellitus with diabetic neuropathy, unspecified; I10 Essential (primary) hypertension; F20.9 Schizophrenia, unspecified; F17.210 Nicotine dependence, cigarettes, uncomplicated; Z86.711 Personal history of pulmonary embolism; Z90.81 Acquired absence of spleen; Z88.1 Allergy status to other antibiotic agents; Z88.8 Allergy status to other drugs, medicaments and biological substances
CPT/HCPCS: 99283

== ENCOUNTER 2017-02-11 13:35 | Emergency (ER) | payer OTHER ==
[~2017-02-11] VITALS: Ht 175.3 cm; Wt 113.4 kg
[~2017-02-11 13:35] MED LIST changes: +AMOX1TAB61 PO; +GUAI12003 PO
[2017-02-11] MEDS ORDERED: IPRATRPIUM/ALBUTEROL 0.5/2.5MG 3 ML NEBU. NEB ONE (14:30)
[2017-02-11 15:01] LABS: OBC FLU VALID
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
--- NOTE | 2017-02-11 15:12 | RAD ---
Indication: Cough. Time of exam 1448 hours. Correlation is made with prior study from 01/28/2017. The heart size is stable. Lungs are clear. No infiltrate or failure is detected. No effusion or pneumothorax is seen. Impression: No acute cardiopulmonary process is detected.
[2017-02-11 15:19] LABS: HCO3 ABG 25 mmol/L (21-28); PCO2 ABG 43 mmHg (35-46); PH ABG 7.38 (7.35-7.45); PO2 ABG 73 mmHg (75-108); SAT O2 ABG 95 % (92-99)
[2017-02-11 15:21] LABS: FIO2 ABG 21
--- NOTE | 2017-02-11 15:33 | EKG ---
[facility] [address] [place] [address] Test Date: 2017-02-11 Test Time: 15:03:50 Pat Name: HAMILTON GUTIERREZ Department: Room: Gender: M Sailor: : 1960 Requested By: DARRYL SALGUERO Order Number: [id number] Reading MD: Measurements Intervals [place] Rate: 75 P: 51 UT: 146 QRS: 45 QRSD: 86 T: 27 QT: 366 QTc: 411 Interpretive Statements SINUS RHYTHM OTHERWISE NORMAL ECG RI6.01 No previous ECG available for comparison
[2017-02-11 16:17] LABS: BILIRUBIN,URINE NEGATIVE (NEG); GLUCOSE,URINE NEGATIVE (NEG); NITRITE,URINE NEGATIVE (NEG); PH,URINE 5.5; PROTEIN,URINE NEGATIVE (NEG-TRACE); UROBILINOGEN,URINE 0.2 mg/dL (0.2 mg/dL)
[2017-02-11 16:22] LABS: BARBITURATES NEG (NEG); BENZODIAZEPINES NEG (NEG); CANNABINOIDS NEG (NEG); COCAINE NEG (NEG); METHADONE NEG (NEG); OPIATES NEG (NEG); PHENCYCLIDINE NEG (NEG)
[2017-02-11 16:23] LABS: BACTERIA,URINE 0 /HPF (0-FEW); RBC,URINE OCC /HPF (0-2); SQUAMOUS EPITHELIAL CELL,UR FEW /LPF
[2017-02-11 17:00] LABS: BASO # 0.1 x10^3/uL (0.0-0.2); BASO % 1 % (0-3); EOS % 3 % (0-3); HEMATOCRIT 44.3 % (39.0-53.0); HEMOGLOBIN 13.9 g/dL (13.0-17.5); LYMPH # 2.8 x10^3/uL (1.0-4.8); LYMPH % 27 % (24-48); MEAN CORPUSCULAR HEMOGLOBIN 28 pg (25-35); MEAN CORPUSCULAR HGB CONC 31 g/dL (31-37); MEAN CORPUSCULAR VOLUME 90 fL (79-100); MONO % 7 % (0-9); NEUT % 62 % (31-73); PLATELET COUNT 341 x10^3/uL (140-400); RED BLOOD COUNT 4.95 x10^6/uL (4.30-5.70); WHITE BLOOD COUNT 10.2 x10^3/uL (4.0-11.0)
[2017-02-11 17:10] LABS: CALCIUM 8.9 mg/dL (8.5-10.1); CREATININE 0.8 mg/dL (0.7-1.3); POTASSIUM 4.5 mmol/L (3.5-5.1)
[2017-02-11 17:15] LABS: ALBUMIN 3.5 g/dL (3.4-5.0); ALBUMIN/GLOBULIN RATIO 1.1 (1.0-1.7); TOTAL BILIRUBIN 0.4 mg/dL (0.2-1.0); TOTAL PROTEIN 6.8 g/dL (6.4-8.2)
[2017-02-11 17:58] VITALS: BP 157/108
== END 2017-02-11 19:25 | disposition home or self-care (01) ==
LOC: ER 13:35
DX: R05 Cough (principal); I10 Essential (primary) hypertension; E11.40 Type 2 diabetes mellitus with diabetic neuropathy, unspecified; F20.9 Schizophrenia, unspecified; Z88.1 Allergy status to other antibiotic agents; Z88.8 Allergy status to other drugs, medicaments and biological substances
CPT/HCPCS: 36415; 36600; 71010; 80053; 80307; 81001; 82553; 82805; 83880; 84484; 85025; 87804; 93005; 94640; 99285; J7620; G0479

== ENCOUNTER 2017-02-14 13:31 | Emergency (ER) | payer OTHER ==
[~2017-02-14] VITALS: Ht 175.3 cm; Wt 113.4 kg
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
[2017-02-14 14:24] VITALS: BP 160/88
== END 2017-02-14 14:34 | disposition home or self-care (01) ==
LOC: ER 13:31
DX: Z76.0 Encounter for issue of repeat prescription (principal); F20.9 Schizophrenia, unspecified; I10 Essential (primary) hypertension; E11.40 Type 2 diabetes mellitus with diabetic neuropathy, unspecified; Z88.1 Allergy status to other antibiotic agents; Z88.8 Allergy status to other drugs, medicaments and biological substances
CPT/HCPCS: 99283

== ENCOUNTER 2017-03-29 20:10 | Emergency (ER) | payer OTHER ==
[2017-03-29] MEDS: MORPHINE SULFATE 2 MG/ML DISP.SYRIN. IV/SQ ×2 (20:47→21:13)
[2017-03-29 20:48] LABS: ADD MAN DIFF? NO
[2017-03-29 20:55] LABS: BILIRUBIN,URINE NEGATIVE (NEG); CLARITY,URINE CLEAR; COLOR,URINE YELLOW; GLUCOSE,URINE NEGATIVE (NEG); NITRITE,URINE NEGATIVE (NEG); PH,URINE 7.5; PROTEIN,URINE NEGATIVE (NEG-TRACE)
[2017-03-29 20:58] LABS: BASO # 0.1 x10^3/uL (0.0-0.2); BASO % 1 % (0-3); EOS # 0.1 x10^3/uL (0.0-0.7); EOS % 1 % (0-3); HEMATOCRIT 41.3 % (39.0-53.0); HEMOGLOBIN 13.7 g/dL (13.0-17.5); LYMPH # 2.5 x10^3/uL (1.0-4.8); LYMPH % 23 % (24-48); MEAN CORPUSCULAR HEMOGLOBIN 29 pg (25-35); MEAN CORPUSCULAR HGB CONC 33 g/dL (31-37); MEAN CORPUSCULAR VOLUME 88 fL (79-100); MONO # 0.8 x10^3/uL (0.0-1.1); MONO % 8 % (0-9); NEUT # 7.2 x10^3uL (1.8-7.7); NEUT % 67 % (31-73); PLATELET COUNT 369 x10^3/uL (140-400); RED BLOOD COUNT 4.68 x10^6/uL (4.30-5.70); RED CELL DISTRIBUTION WIDTH 15.9 % (11.5-14.5); WHITE BLOOD COUNT 10.8 x10^3/uL (4.0-11.0)
[2017-03-29 21:00] LABS: BACTERIA,URINE 0 /HPF (0-FEW); RBC,URINE 0 /HPF (0-2); SQUAMOUS EPITHELIAL CELL,UR FEW /LPF; WBC,URINE 0 /HPF (0-4)
[2017-03-29 21:01] LABS: BARBITURATES NEG (NEG); BENZODIAZEPINES NEG (NEG); CANNABINOIDS NEG (NEG); COCAINE NEG (NEG); METHADONE NEG (NEG); OPIATES NEG (NEG); PHENCYCLIDINE NEG (NEG)
[2017-03-29 21:04] LABS: AMPHETAMINE/METHAMPHETAMINE NEG (NEG); ETHANOL, URINE NEG (NEG)
[2017-03-29 21:11] LABS: INFLUENZA A PATIENT NEGATIVE (NEGATIVE); INFLUENZA B PATIENT NEGATIVE (NEGATIVE); OBC FLU VALID
[2017-03-29 21:13] LABS: ANION GAP 11 (6-14); BLOOD UREA NITROGEN 13 mg/dL (8-26); CALCIUM 9.4 mg/dL (8.5-10.1); CARBON DIOXIDE 27 mmol/L (21-32); CHLORIDE 100 mmol/L (98-107); CREATININE 0.8 mg/dL (0.7-1.3); GLUCOSE 94 mg/dL (70-99); SODIUM 138 mmol/L (136-145)
[2017-03-29 21:19] LABS: ALBUMIN 3.8 g/dL (3.4-5.0); ALK PHOS 69 U/L (46-116); ALT (SGPT) 29 U/L (16-63); AST (SGOT) 30 U/L (15-37); DIRECT BILIRUBIN 0.2 mg/dL (0.0-0.2); MAGNESIUM 2.1 mg/dL (1.8-2.4); TOTAL BILIRUBIN 0.8 mg/dL (0.2-1.0); TOTAL PROTEIN 7.8 g/dL (6.4-8.2)
[2017-03-29 21:19] LABS: LACTIC ACID 0.8 mmol/L (0.4-2.0)
[2017-03-29 21:20] LABS: TROPONINI < 0.017 ng/mL (0.000-0.055)
[2017-03-29 21:26] LABS: CKMB INDEX 0.8 % (0-4); CKMB MASS 5.1 ng/mL (0.0-3.6); CREATINE KINASE 617 U/L (39-308)
[2017-03-29 21:26] LABS: NT-PRO BNP 40 pg/mL (0-124)
[2017-03-29 21:27] LABS: THYROID STIM HORMONE (TSH) 1.064 uIU/mL (0.358-3.74)
[2017-03-29] MEDS: ACETAMINOPHEN 500 MG TABLET PO (21:27)
[2017-03-29] MEDS: AMOXICILLIN/K CLAV 875/125MG TABLET. PO (22:08)
== END 2017-03-29 22:18 | disposition home or self-care (01) ==
LOC: ER 20:10
DX: J01.90 Acute sinusitis, unspecified (principal); F20.9 Schizophrenia, unspecified; E11.9 Type 2 diabetes mellitus without complications; I10 Essential (primary) hypertension; J40 Bronchitis, not specified as acute or chronic; Z88.1 Allergy status to other antibiotic agents; Z88.6 Allergy status to analgesic agent; Z88.8 Allergy status to other drugs, medicaments and biological substances
CPT/HCPCS: 36415; 70450; 71046; 80048; 80076; 80307; 81001; 82553; 83605; 83735; 83880; 84443; 84484; 85025; 87040; 87804; 87804-59; 93005; 96374; 96376; 99285-25; J2270

== ENCOUNTER 2017-10-13 10:34 | Emergency (ER) | payer OTHER ==
[2017-10-13] MEDS: IBUPROFEN 800 MG TABLET. PO (10:57)
[2017-10-13] MEDS: HYDROcodone/APAP 7.5/325MG 1 TAB TABLET PO (10:57)
== END 2017-10-13 13:00 | disposition home or self-care (01) ==
LOC: ER 10:34
DX: M25.531 Pain in right wrist (principal); M25.551 Pain in right hip; R07.81 Pleurodynia; E11.40 Type 2 diabetes mellitus with diabetic neuropathy, unspecified; E78.00 Pure hypercholesterolemia, unspecified; I10 Essential (primary) hypertension; F20.9 Schizophrenia, unspecified; Z88.1 Allergy status to other antibiotic agents; Z88.8 Allergy status to other drugs, medicaments and biological substances; W17.89XA Other fall from one level to another, initial encounter; Y93.E1 Activity, personal bathing and showering; Y99.8 Other external cause status; Y92.89 Other specified places as the place of occurrence of the external cause
CPT/HCPCS: 71101; 73110; 73502; 99284-25

== ENCOUNTER 2018-01-06 10:05 | Emergency (ER) | payer OTHER ==
[~2018-01-06] VITALS: Ht 175.3 cm; Wt 122.5 kg
[~2018-01-06 10:05] MED LIST changes: +HYDR-971 PO; +IBUP-1060 PO; -LOSA50TA6 PO; +LOSA50TA7 PO
[2018-01-06 10:06] VITALS: BP 169/81
[2018-01-06] MEDS ORDERED: DIPHTH,PERTUSS(ACELL),TET TOX 0.5 ML DISP.SYRIN. VAX IM ONE (10:30)
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
== END 2018-01-06 11:07 | disposition home or self-care (01) ==
LOC: ER 10:05
DX: S00.03XA Contusion of scalp, initial encounter (principal); S00.532A Contusion of oral cavity, initial encounter; E78.00 Pure hypercholesterolemia, unspecified; I10 Essential (primary) hypertension; E11.9 Type 2 diabetes mellitus without complications; Z88.1 Allergy status to other antibiotic agents; Z88.8 Allergy status to other drugs, medicaments and biological substances; Y08.89XA Assault by other specified means, initial encounter; Y93.89 Activity, other specified; Y92.89 Other specified places as the place of occurrence of the external cause; Y99.8 Other external cause status
CPT/HCPCS: 90471; 90715; 99283-25

== ENCOUNTER 2019-11-28 13:11 | Emergency (ER) | payer OTHER ==
[~2019-11-28] VITALS: Ht 175.3 cm; Wt 135.0 kg
[~2019-11-28 13:11] MED LIST changes: +ALBU2.5V8 INH; +GABA300C18 PO; -GABA300C8 PO; +HYDR-3164 PO; -HYDR-971 PO; +LOSA-73 PO; -LOSA50TA7 PO; -OXYC-323 PO; +OXYC1TAB15 PO; -PROAIR HFA8.5 GM INH
[2019-11-28] MEDS ORDERED: IV NORMAL SALINE 1000ML BAG 1,000 ML IV ONE (14:00)
[2019-11-28 14:09] LABS: BILIRUBIN,URINE NEGATIVE (NEG); COLOR,URINE YELLOW; NITRITE,URINE NEGATIVE (NEG); PH,URINE 7.5 (<5.0-8.0); PROTEIN,URINE NEGATIVE (NEG-TRACE)
--- NOTE | 2019-11-28 14:15 | PHYS DOC ---
Past Medical History Past Medical History: Diabetes-Type II, High Cholesterol, Hypertension Additional Past Medical Histor: BORDERLINE DM Past Surgical History: Colectomy, Splenectomy Additional Past Surgical Histo: BIOPSY ON LYMPH NODES AROUND NECK Smoking Status: Current Some Day Smoker Alcohol Use: None Drug Use: None General Adult EDM: Chief Complaint: BLOOD IN URINE HPI: HPI: The history was obtained from the patient. Patient is a 59-year-old male with PMH hypertension, diabetes who presents with a chief complaint of hematuria. Patient states he began having grossly bloody urine earlier today. He states he is never had this before. He states he did note some bloody discharge from the external urethral meatus. Denies any pain with urination. Denies history of kidney stones. Notes very mild left flank tenderness. Denies abdominal pain. Denies nausea or vomiting. Chart review states that he was taking Eliquis 2017 but has since discontinued this. Denies any trauma to his region. Denies any testicular pain. States that his urine has cleared up with specks of blood. Denies any recent sexual activity. Denies syncope. No other complaints. Review of Systems: Review of Systems: Constitutional: Denies fever or chills. [] Eyes: Denies change in visual acuity. [] HENT: Denies nasal congestion or sore throat. [] Respiratory: Denies cough or shortness of breath. [] Cardiovascular: Denies chest pain or edema. [] GI: Denies abdominal pain, nausea, vomiting, bloody stools or diarrhea. [] : Positive for hematuria Musculoskeletal: Denies back pain or joint pain. [] Integument: Denies rash. [] Neurologic: Denies headache, focal weakness or sensory changes. [] Endocrine: Denies polyuria or polydipsia. [] Lymphatic: Denies swollen glands. [] Psychiatric: Denies depression or anxiety. [] Heart Score: Risk Factors: Risk Factors: DM, Current or recent (<one month) smoker, HTN, HLP, family history of CAD, obesity. Risk Scores: Score 0 - 3: 2.5% MACE over next 6 weeks - Discharge Home Score 4 - 6: 20.3% MACE over next 6 weeks - Admit for Clinical Observation Score 7 - 10: 72.7% MACE over next 6 weeks - Early Invasive Strategies Current Medications: Current Medications Medications (Trade) Dose Ordered Sig/Darin Start Time Stop Time Status Last Admin Dose Admin Sodium Chloride 1,000 ml @ 1,000 mls/hr 1X ONCE 11/28/19 14:00 11/28/19 14:59 Allergies: Allergies: Allergies Coded Allergies Type Severity Reaction Last Updated Verified azithromycin Allergy Intermediate nose bleed 12/31/16 Yes lisinopril Allergy Intermediate 07/23/15 Yes losartan Allergy Intermediate 10/10/16 Yes triamcinolone Allergy Intermediate rash 10/09/16 Yes triamterene Allergy Intermediate Itching 12/30/16 Yes Physical Exam: PE: Constitutional: Well developed, well nourished, no acute distress, non-toxic appearance. [] HENT: Normocephalic, atraumatic, bilateral external ears normal, oropharynx moist, no oral exudates, nose normal. [] Eyes: PERRLA, EOMI, conjunctiva normal, no discharge. [] Neck: Normal range of motion, no tenderness, supple, no stridor. [] Cardiovascular:Heart rate regular rhythm, no murmur [] Lungs & Thorax: Bilateral breath sounds clear to auscultation [] Abdomen: Soft, nontender, nonacute abdomen. No involuntary guarding or rigidity noted. No acute peritonitis. : Uncircumcised. No blood at the external urethral meatus. No testicular tenderness or swelling noted. No overlying skin changes. No Inguinal masses noted. Skin: Warm, dry, no erythema, no rash. [] Back: No tenderness, no CVA tenderness. [] Extremities: No tenderness, no cyanosis, no clubbing, ROM intact, no edema. [] Neurologic: Alert and oriented X 3, normal motor function, normal sensory function, no focal deficits noted. [] Psychologic: Affect normal, judgement normal, mood normal. [] Current Patient Data: Labs: Laboratory Tests Test 11/28/19 13:52 11/28/19 15:05 Urine Collection Type Unknown Urine Color Yellow Urine Clarity Clear Urine pH 7.5 Urine Specific Knapp 1.015 Urine Protein Negative mg/dL Urine Glucose (UA) Negative mg/dL Urine Ketones (Stick) Negative mg/dL Urine Blood Moderate Urine Nitrite Negative Urine Bilirubin Negative Urine Urobilinogen Dipstick 4.0 mg/dL Urine Leukocyte Esterase Trace Urine RBC >40 /HPF Urine WBC Rare /HPF Urine Squamous Epithelial Cells Few /LPF Urine Bacteria 0 /HPF White Blood Count 11.5 x10^3/uL Red Blood Count 4.95 x10^6/uL Hemoglobin 13.7 g/dL Hematocrit 41.8 % Mean Corpuscular Volume 84 fL Mean Corpuscular Hemoglobin 28 pg Mean Corpuscular Hemoglobin Concent 33 g/dL Red Cell Distribution Width 15.6 % Platelet Count 409 x10^3/uL Neutrophils (%) (Auto) 64 % Lymphocytes (%) (Auto) 24 % Monocytes (%) (Auto) 11 % Eosinophils (%) (Auto) 1 % Basophils (%) (Auto) 1 % Neutrophils # (Auto) 7.3 x10^3/uL Lymphocytes # (Auto) 2.7 x10^3/uL Monocytes # (Auto) 1.2 x10^3/uL Eosinophils # (Auto) 0.1 x10^3/uL Basophils # (Auto) 0.1 x10^3/uL Prothrombin Time 12.9 SEC Prothromb Time International Ratio 1.0 Sodium Level 134 mmol/L Potassium Level 3.9 mmol/L Chloride Level 98 mmol/L Carbon Dioxide Level 29 mmol/L Anion Gap 7 Blood Urea Nitrogen 12 mg/dL Creatinine 0.9 mg/dL Estimated GFR (Cockcroft-Gault) 104.5 Glucose Level 92 mg/dL Calcium Level 9.4 mg/dL Current Medications Medications (Trade) Dose Ordered Sig/Darin Route PRN Reason Start Time Stop Time Status Last Admin Dose Admin Sodium Chloride 1,000 ml @ 1,000 mls/hr 1X ONCE IV 11/28/19 14:00 11/28/19 14:59 DC 11/28/19 15:13 Acetaminophen/ Hydrocodone Bitart (Lortab 5/325) 1 tab 1X ONCE PO 11/28/19 16:15 11/28/19 16:16 UNV Vital Signs: Vital Signs Date Time Temp Pulse Resp B/P (MAP) Pulse Ox O2 Delivery O2 Flow Rate FiO2 11/28/19 14:18 98.3 90 22 165/82 (109) 96 Room Air 98.3 EKG: EKG: [] Radiology/Procedures: Radiology/Procedures: [facility] [address] [place], [place] [id number] IMAGING REPORT Signed PATIENT: HAMILTON GUTIERREZ Sven ACCOUNT: [id number] : 1960 LOCATION: ER AGE: 59 SEX: M EXAM STATUS: REG ER ORD. PHYSICIAN: GILL BROWN DO REASON: gross hematuria. mild l flank pain PROCEDURE: CT ABDOMEN PELVIS WO CONTRAST EXAM: CT Abdomen and Pelvis without IV contrast INDICATION: Reason: gross hematuria. mild l flank pain / Spl. Instructions: / History: TECHNIQUE: Multi-detector row CT images were acquired from the lung bases through the abdomen and pelvis without the use of IV contrast. Sagittal and coronal images were acquired from the transaxial data. All CT scans performed at this facility utilize dose optimization techniques as appropriate to the exam, including the following: Automated exposure control and adjustment of the mA and/or KV according to patient size (this includes techniques or standardized protocols for targeted exams where dose is indication/reason for exam). ORAL CONTRAST: None COMPARISON: None FINDINGS: The absence of IV contrast limits evaluation of soft tissue pathology. LOWER CHEST: Unremarkable LIVER: Mild hypertrophy of the left hepatic lobe with a macronodular contour. BILIARY SYSTEM: Gallbladder is unremarkable. Bile ducts are not dilated. PANCREAS: Unremarkable SPLEEN: Unremarkable ADRENALS: Unremarkable KIDNEYS & URETERS: Unremarkable. No urinary tract stones are identified and no hydronephrosis or renal masses identified on noncontrast imaging. BLADDER: Incompletely distention but with mild diffuse bladder wall thickening and subtle perivesical soft tissue stranding most conspicuous at the anterior dome. No obvious mass or bladder stones identified. REPRODUCTIVE ORGANS: Unremarkable GASTROINTESTINAL: The stomach, small bowel, and colon are unremarkable. The appendix is normal. MESENTERY/PERITONEUM/RETROPERITONEUM: Unremarkable VASCULAR: Unremarkable LYMPH NODES: Mild periportal and mesenteric adenopathy is present with the largest lymph node measuring 2.2 cm short axis diameter of the maddie hepatis.. OSSEOUS & SOFT TISSUES: Unremarkable IMPRESSION: 1. Mild bladder wall thickening and stranding of the bladder dome is suggestive of cystitis. Correlate clinically for any evidence of hemorrhagic cystitis. More detailed evaluation of the urinary tract could be pursued with multiphasic renal mass protocol CT or MRI if indicated. 2. Mild mesenteric adenopathy and periportal adenopathy is of uncertain etiology. In association with a macronodular contour to the liver, consider viral hepatitis with early changes of cirrhosis and consider imaging follow-up if clinically appropriate.. Electronically signed by: Caitlin Mcbride MD (11/28/2019 3:18 PM) [facility] DICTATED and SIGNED BY: CAITLIN MCBRIDE MD DATE: 11/28/19 1518 [] Course & Med Decision Making: Course & Med Decision Making Pertinent Labs and Imaging studies reviewed. (See chart for details) [] Patient is a well-appearing 59-year-old male who presents with chief complaint of gross hematuria. Initial vital signs unremarkable. Exam grossly unremarkable. Urinalysis does show specks of blood. Urine is not grossly red however. Chemistry panel normal including normal kidney function. CBC without leukocytosis or anemia. Urinalysis shows no evidence of infection. Patient denies any urinary symptoms outside hematuria. Coleman catheter was placed and continuous bladder irrigation was performed. No blood or gross blood return from Coleman catheter insertion. CT imaging reveals no signs of kidney stone or concerning mass. Secondary findings indicate potential hemorrhagic cystitis with inflammation surrounding the urinary bladder. At this time I do feel he is appropriate for discharge home. He tells me that he does not take any blood thinners at this time although it is on his med list he is unsure of if he ever took blood thinners. PT/INR within normal limits. Antibiotics to be deferred. Culture is pending and patient will be started antibiotics if indicated. He was instructed to follow-up with his primary care physician in the next 2 to 3 days. Return precautions discussed and understood. Stable for discharge home. Mike Disclaimer: Mike Disclaimer: This electronic medical record was generated, in whole or in part, using a voice recognition dictation system. Departure Departure Impression: Primary Impression: Hematuria Qualified Codes: R31.9 - Hematuria, unspecified Disposition: HOME, SELF-CARE Condition: STABLE Referrals: NO PCP (PCP) Patient Instructions: Hematuria, Adult Additional Instructions: Please follow-up with your primary care physician in the next [address] Ced De [facility] [address] [place] [address] Call [place] [phone] Justicifation of Admission Dx: Justifications for Admission: Justification of Admission Dx: N/A GILL BROWN DO Nov 28, 2019 14:15
[2019-11-28 14:16] LABS: RBC,URINE >40 /HPF (0-2); SQUAMOUS EPITHELIAL CELL,UR FEW /LPF
[2019-11-28 14:17] LABS: BACTERIA,URINE 0 /HPF (0-FEW); CLARITY,URINE CLEAR; WBC,URINE RARE /HPF (0-4)
[2019-11-28 15:20] LABS: BASO # 0.1 x10^3/uL (0.0-0.2); BASO % 1 % (0-3); EOS # 0.1 x10^3/uL (0.0-0.7); EOS % 1 % (0-3); HEMATOCRIT 41.8 % (39.0-53.0); HEMOGLOBIN 13.7 g/dL (13.0-17.5); LYMPH # 2.7 x10^3/uL (1.0-4.8); LYMPH % 24 % (24-48); MEAN CORPUSCULAR HEMOGLOBIN 28 pg (25-35); MEAN CORPUSCULAR HGB CONC 33 g/dL (31-37); MEAN CORPUSCULAR VOLUME 84 fL (79-100); MONO # 1.2 x10^3/uL (0.0-1.1); MONO % 11 % (0-9); NEUT # 7.3 x10^3/uL (1.8-7.7); NEUT % 64 % (31-73); PLATELET COUNT 409 x10^3/uL (140-400); RED BLOOD COUNT 4.95 x10^6/uL (4.30-5.70); RED CELL DISTRIBUTION WIDTH 15.6 % (11.5-14.5); WHITE BLOOD COUNT 11.5 x10^3/uL (4.0-11.0)
--- NOTE | 2019-11-28 15:21 | RAD ---
EXAM: CT Abdomen and Pelvis without IV contrast INDICATION: Reason: gross hematuria. mild l flank pain / Spl. Instructions: / History: TECHNIQUE: Multi-detector row CT images were acquired from the lung bases through the abdomen and pelvis without the use of IV contrast. Sagittal and coronal images were acquired from the transaxial data. All CT scans performed at this facility utilize dose optimization techniques as appropriate to the exam, including the following: Automated exposure control and adjustment of the mA and/or KV according to patient size (this includes techniques or standardized protocols for targeted exams where dose is indication/reason for exam). ORAL CONTRAST: None COMPARISON: None FINDINGS: The absence of IV contrast limits evaluation of soft tissue pathology. LOWER CHEST: Unremarkable LIVER: Mild hypertrophy of the left hepatic lobe with a macronodular contour. BILIARY SYSTEM: Gallbladder is unremarkable. Bile ducts are not dilated. PANCREAS: Unremarkable SPLEEN: Unremarkable ADRENALS: Unremarkable KIDNEYS & URETERS: Unremarkable. No urinary tract stones are identified and no hydronephrosis or renal masses identified on noncontrast imaging. BLADDER: Incompletely distention but with mild diffuse bladder wall thickening and subtle perivesical soft tissue stranding most conspicuous at the anterior dome. No obvious mass or bladder stones identified. REPRODUCTIVE ORGANS: Unremarkable GASTROINTESTINAL: The stomach, small bowel, and colon are unremarkable. The appendix is normal. MESENTERY/PERITONEUM/RETROPERITONEUM: Unremarkable VASCULAR: Unremarkable LYMPH NODES: Mild periportal and mesenteric adenopathy is present with the largest lymph node measuring 2.2 cm short axis diameter of the maddie hepatis.. OSSEOUS & SOFT TISSUES: Unremarkable IMPRESSION: 1. Mild bladder wall thickening and stranding of the bladder dome is suggestive of cystitis. Correlate clinically for any evidence of hemorrhagic cystitis. More detailed evaluation of the urinary tract could be pursued with multiphasic renal mass protocol CT or MRI if indicated. 2. Mild mesenteric adenopathy and periportal adenopathy is of uncertain etiology. In association with a macronodular contour to the liver, consider viral hepatitis with early changes of cirrhosis and consider imaging follow-up if clinically appropriate.. Electronically signed by: Rosalba Mcbride MD (11/28/2019 3:18 PM) [facility] [place]
[2019-11-28 15:29] LABS: CALCIUM 9.4 mg/dL (8.5-10.1); CREATININE 0.9 mg/dL (0.7-1.3); GFR 104.5; POTASSIUM 3.9 mmol/L (3.5-5.1); PROTHROMBIN TIME PATIENT 12.9 SEC (11.7-14.0)
[2019-11-28] MEDS ORDERED: HYDROcodone/APAP 5/325MG 1 TAB TABLET PO ONE (16:30)
[2019-11-28 17:05] VITALS: BP 165/82
== END 2019-11-28 17:30 | disposition home or self-care (01) ==
LOC: ER 13:11
DX: R31.9 Hematuria, unspecified (principal); R10.9 Unspecified abdominal pain; E11.9 Type 2 diabetes mellitus without complications; E78.00 Pure hypercholesterolemia, unspecified; I10 Essential (primary) hypertension; Z90.89 Acquired absence of other organs; Z98.890 Other specified postprocedural states; Z87.891 Personal history of nicotine dependence; Z88.1 Allergy status to other antibiotic agents; Z88.6 Allergy status to analgesic agent; Z88.8 Allergy status to other drugs, medicaments and biological substances
CPT/HCPCS: 36415; 74176; 80048; 81001; 85025; 85610; 87086; 96360; 99284; J7030

== ENCOUNTER 2020-10-09 03:10 | Emergency (ER) | payer OTHER ==
[~2020-10-09] VITALS: Ht 175.3 cm; Wt 125.0 kg
[~2020-10-09 03:10] MED LIST changes: +CRESTOR5 MG PO; +DOXY-181 PO; -DOXY100C14 PO; +FLUT9.9S NS; +METF500T16 PO; +VITA25006 PO
--- NOTE | 2020-10-09 03:43 | PHYS DOC ---
Past Medical History Past Medical History: Diabetes-Type II, High Cholesterol, Hypertension, Other (lymphoma) Additional Past Medical Histor: BORDERLINE DM Past Surgical History: Colectomy, Splenectomy, Other Additional Past Surgical Histo: BIOPSY ON LYMPH NODES AROUND NECK Smoking Status: Never Smoker Alcohol Use: None Drug Use: None General Adult EDM: Chief Complaint: HYPERGLYCEMIA HPI: HPI: Patient is a 59 year old male who present to ER for evaluation of elevated blood sugar. Patient has history of borderline diabetic, he is on Metformin 500 mg twice a day, history of lymphoma, currently under chemo treatment. Patient said recently he was put on prednisone tablets due to his chemotherapy. Last night he started feeling hot flashes, feeling weak and dizzy, he checked his blood sugar and was elevated. Patient denies chest pain, no abdominal pain, no trouble breathing. Patient denies any fever. She denies any cough. Review of Systems: Review of Systems: Constitutional: Denies fever or chills. [] Eyes: Denies change in visual acuity. [] HENT: Denies nasal congestion or sore throat. [] Respiratory: Denies cough or shortness of breath. [] Cardiovascular: Denies chest pain or edema. [] GI: Denies abdominal pain, nausea, vomiting, bloody stools or diarrhea. [] : Denies dysuria. [] Musculoskeletal: Denies back pain or joint pain. [] Integument: Denies rash. [] Neurologic: Denies headache, focal weakness or sensory changes. Positive for generalized weakness Endocrine: Positive for polyuria or polydipsia. [] Lymphatic: Denies swollen glands. [] Psychiatric: Denies depression or anxiety. [] Heart Score: C/O Chest Pain: N/A Risk Factors: Risk Factors: DM, Current or recent (<one month) smoker, HTN, HLP, family history of CAD, obesity. Risk Scores: Score 0 - 3: 2.5% MACE over next 6 weeks - Discharge Home Score 4 - 6: 20.3% MACE over next 6 weeks - Admit for Clinical Observation Score 7 - 10: 72.7% MACE over next 6 weeks - Early Invasive Strategies Allergies: Allergies: Allergies Coded Allergies Type Severity Reaction Last Updated Verified azithromycin Allergy Intermediate nose bleed 12/31/16 Yes losartan Allergy Intermediate 10/10/16 Yes triamcinolone Allergy Intermediate rash 8/2/17 Yes Physical Exam: PE: Constitutional: Well developed, well nourished, no acute distress, non-toxic appearance. [] HENT: Normocephalic, atraumatic, bilateral external ears normal, oropharynx moist, no oral exudates, nose normal. [] Eyes: PERRLA, EOMI, conjunctiva normal, no discharge. [] Neck: Normal range of motion, no tenderness, supple, no stridor. [] Cardiovascular:Heart rate regular rhythm, no murmur [] Lungs & Thorax: Bilateral breath sounds clear to auscultation [] Abdomen: Bowel sounds normal, soft, no tenderness, no masses, no pulsatile masses. [] Skin: Warm, dry, no erythema, no rash. [] Back: No tenderness, no CVA tenderness. [] Extremities: No tenderness, no cyanosis, no clubbing, ROM intact, no edema. [] Neurologic: Alert and oriented X 3, normal motor function, normal sensory function, no focal deficits noted. [] Psychologic: Affect normal, judgement normal, mood normal. [] Current Patient Data: Labs: Laboratory Tests Test 10/09/20 04:05 10/09/20 05:15 White Blood Count 2.2 x10^3/uL Red Blood Count 3.34 x10^6/uL Hemoglobin 10.3 g/dL Hematocrit 30.7 % Mean Corpuscular Volume 92 fL Mean Corpuscular Hemoglobin 31 pg Mean Corpuscular Hemoglobin Concent 34 g/dL Red Cell Distribution Width 19.6 % Platelet Count 214 x10^3/uL Neutrophils (%) (Auto) 74 % Lymphocytes (%) (Auto) 15 % Monocytes (%) (Auto) 7 % Eosinophils (%) (Auto) 2 % Basophils (%) (Auto) 2 % Neutrophils # (Auto) 1.7 x10^3/uL Lymphocytes # (Auto) 0.3 x10^3/uL Monocytes # (Auto) 0.2 x10^3/uL Eosinophils # (Auto) 0.0 x10^3/uL Basophils # (Auto) 0.0 x10^3/uL Platelet Estimate Pending Sodium Level 136 mmol/L Potassium Level 3.5 mmol/L Chloride Level 98 mmol/L Carbon Dioxide Level 32 mmol/L Anion Gap 6 Blood Urea Nitrogen 15 mg/dL Creatinine 0.7 mg/dL Estimated GFR (Cockcroft-Gault) 139.7 BUN/Creatinine Ratio 21 Glucose Level 248 mg/dL Calcium Level 8.3 mg/dL Magnesium Level 2.0 mg/dL Total Bilirubin 0.7 mg/dL Aspartate Amino Transf (AST/SGOT) 11 U/L Alanine Aminotransferase (ALT/SGPT) 23 U/L Alkaline Phosphatase 104 U/L Total Protein 5.7 g/dL Albumin 3.0 g/dL Albumin/Globulin Ratio 1.1 Acetone Level Neg Current Medications Medications (Trade) Dose Ordered Sig/Darin Route PRN Reason Start Time Stop Time Status Last Admin Dose Admin Sodium Chloride 1,000 ml @ 1,000 mls/hr 1X ONCE IV 10/09/20 04:00 10/09/20 04:59 DC 10/09/20 04:12 EKG: EKG: [] Radiology/Procedures: Radiology/Procedures: [] Course & Med Decision Making: Course & Med Decision Making Pertinent Labs and Imaging studies reviewed. (See chart for details) Patient is a 59-year-old male who present to ER for evaluation of elevated blood sugar. Patient has history of diabetic, he is on Metformin 500 mg twice a day. His blood sugar today at 248, it is elevated but reassuring at this time. Patient will need to follow-up with family physician for reevaluation. Mike Disclaimer: Mike Disclaimer: This electronic medical record was generated, in whole or in part, using a voice recognition dictation system. Departure Departure Impression: Primary Impression: Hyperglycemia Disposition: HOME / SELF CARE / HOMELESS Condition: STABLE Referrals: DEANN SR DO (PCP) Please follow up with your doctor in 1-2 days for reevaluation Patient Instructions: Hyperglycemia Additional Instructions: Thank you for visiting our Emergency Department. We appreciate you trusting us with your care. If any additional problems come up don't hesitate to return to visit us. Please follow up with your primary care provider so they can plan additional care if needed and know about the problem that you had. If symptoms worsen come back to the Emergency Department. Any concerning symptoms that start such as chest pain, shortness of air, weakness or numbness on one side of the body, running high fevers or any other concerning symptoms return to the ER. ADOLFO ROSSI DO Oct 09, 2020 03:43
[2020-10-09] MEDS ORDERED: IV NORMAL SALINE 1000ML BAG 1,000 ML IV ONE (04:00)
[2020-10-09 04:26] LABS: BASO % 2 % (0-3); EOS % 2 % (0-3); HEMATOCRIT 30.7 % (39.0-53.0); HEMOGLOBIN 10.3 g/dL (13.0-17.5); LYMPH # 0.3 x10^3/uL (1.0-4.8); LYMPH % 15 % (24-48); MEAN CORPUSCULAR HEMOGLOBIN 31 pg (25-35); MEAN CORPUSCULAR HGB CONC 34 g/dL (31-37); MEAN CORPUSCULAR VOLUME 92 fL (79-100); MONO # 0.2 x10^3/uL (0.0-1.1); MONO % 7 % (0-9); NEUT # 1.7 x10^3/uL (1.8-7.7); NEUT % 74 % (31-73); PLATELET COUNT 214 x10^3/uL (140-400); RED BLOOD COUNT 3.34 x10^6/uL (4.30-5.70); RED CELL DISTRIBUTION WIDTH 19.6 % (11.5-14.5); WHITE BLOOD COUNT 2.2 x10^3/uL (4.0-11.0)
[2020-10-09 05:30] VITALS: BP 153/93
[2020-10-09 05:36] LABS: CALCIUM 8.3 mg/dL (8.5-10.1); CREATININE 0.7 mg/dL (0.7-1.3); GFR 139.7; POTASSIUM 3.5 mmol/L (3.5-5.1)
[2020-10-09 05:43] LABS: ALBUMIN/GLOBULIN RATIO 1.1 (1.0-1.7); TOTAL BILIRUBIN 0.7 mg/dL (0.2-1.0); TOTAL PROTEIN 5.7 g/dL (6.4-8.2)
[2020-10-09 06:03] LABS: % BASOS 1 % (0-3); % EOS 1 % (0-5); % LYMPHS 35 % (24-48); % MONOS 2 % (0-10); % SEGS 61 % (35-66)
[2020-10-09 06:04] LABS: PLT ESTIMATE ADEQUATE (ADEQUATE)
== END 2020-10-09 06:46 | disposition home or self-care (01) ==
LOC: ER 03:10
DX: E11.65 Type 2 diabetes mellitus with hyperglycemia (principal); E78.00 Pure hypercholesterolemia, unspecified; I10 Essential (primary) hypertension
CPT/HCPCS: 36415; 80053; 82010; 83735; 85007; 85025; 96360; 99283; J7030